=== PATIENT | male | born 1940 | race Caucasian/White ===

== ENCOUNTER 2016-07-04 16:29 | Inpatient (IN) | payer OTHER, MEDICARE ==
--- NOTE | 2016-07-04 16:42 | CPEKG ---
Heart Rate: 97 RR Interval: 619 P-R Interval: 172 QRSD Interval: 72 QT Interval: 328 QTC Interval: 417 P Butterfield: 111 QRS Butterfield: -8 T Wave Butterfield: 151 EKG Severity - NORMAL ECG - EKG Impression: SINUS RHYTHM Electronically Signed By: Melita Morris 04-Jul-2016 20:49:51
[2016-07-04] MEDS ORDERED: NS 250 ML IV ONE (16:52)
[2016-07-04 17:02] LABS: % IMMATURE GRANULYOCYTES 0.7 % (0.0-1.1); ABSOLUTE IMMATURE GRANULOCYTES 0.15 10^3/uL (0.00-0.10); ADD DIFF? NO; ADD MORPH? NO; ADD SCAN? NO; ATYPICAL LYMPHOCYTE FLAG 0 (0-99); FRAGMENT RBC FLAG 0 (0-99); HEMATOCRIT 34.7 % (40.0-51.0); HEMOGLOBIN 11.5 g/dL (13.7-17.5); LEFT SHIFT FLG 10 (0-99); LIPEMIA HEMOLYSIS FLAG 80 (0-99); MEAN CELL HEMOGLOBIN 29.3 pg (27.9-34.1); MEAN CELL HEMOGLOBIN CONCENTR. 33.1 g/dL (32.4-36.7); MEAN CELL VOLUME 88.5 fL (81.5-99.8); MEAN PLATELET VOLUME 9.6 fL (8.7-11.7); PLATELET CLUMPS FLAG 0 (0-99); PLATELET COUNT 267 10^3/uL (150-400); RED BLOOD CELL COUNT 3.92 10^6/uL (4.40-6.38); RED CELL DISTRIBUTION WIDTH 13.3 % (11.5-15.2)
--- NOTE | 2016-07-04 17:03 | EDPHY ---
H & P Time Seen by Provider: 07/04/16 16:42 HPI/ROS: HPI Transient speech problem, fever. 76-year-old male by private vehicle with and son. Patient reports he was on the cell phone at 2:00 p.m. when he had a sudden-onset expressive a aphasia. He reports feeling like he knew what he wanted to say but was unable to produce the words. This was witnessed by his as well. This is now resolved on my evaluation. He also reports that he has had an intermittent fever for the last 1 and half to 2 weeks. He has been seen by his primary care physician in [place], Dr. Harmon. He apparently had a negative chest x-ray. He was told was most likely a viral syndrome. He presents to the emergency department with fever today as well. He reports he has had an intermittent dry cough but denies this now. He denies any other associated signs or symptoms with his fever. ROS: Constitutional: As above, no chills. No weakness. Eyes: No discharge. No changes in vision. ENT: No sore throat. No nasal congestion or rhinorrhea. Respiratory: As above. No shortness of breath. Cardiac: No chest pain, no palpitations. Gastrointestinal: No abdominal pain, no vomiting, no diarrhea. Genitourinary: No hematuria. No dysuria or increased frequency with urination. Musculoskeletal: No back pain. No neck pain. No myalgias or arthralgias. Skin: No rashes. Neurological: No headache. No focal weakness or altered sensation. As above. Past medical history: Bypass and valvular surgery by Dr. Albert in April. Pacemaker. Atrial fibrillation. He is on Eliquis. Social history: Nonsmoker. Here with his and son. Physical Exam: General Appearance: Alert, no distress. This patient is responding to questions appropriately and in full sentences. This patient appears well- hydrated and well-nourished. Eyes: Pupils equal and round no pallor or injection. No lid edema, erythema or injection. Respiratory: There are no retractions, lungs are clear to auscultation with good air movement bilaterally. Sternotomy scar noted. Left upper chest wall pacemaker. These areas are clean dry and intact and without evidence of infection. Cardiovascular: Regular rate and rhythm. Holosystolic murmur. Gastrointestinal: Abdomen is soft and nontender, no masses, bowel sounds normal. No focal tenderness at McBurney's point. No Pugh sign. Neurological: Motor sensory function is grossly intact. Cranial nerves are normal. Gait is normal. No aphasia. Skin: Warm and dry, no rashes. Musculoskeletal: Neck is supple and nontender. Extremities are symmetrical. All joints range without pain or impingement. Psychiatric: No agitation. No depression. Database: EKG: EKG time is 4:39 p.m.; EKG shows a narrow complex normal sinus rhythm with a ventricular rate of 97. The DE, QRS, QT intervals are within normal limits. There are no ST-T wave changes indicative of ischemic or injury pattern. No evidence of right heart strain. Interpreted by me. Imaging: Chest x-ray PA and lateral; improved small residual right pleural effusion with mild basilar atelectasis. Left upper chest wall pacemaker. Leads appear intact. No infiltrate. No acute CHF. Interpreted by me. CT scan of head without contrast: No acute pathology. Results were discussed with staff radiologist. Echocardiogram: Procedures: Emergency department course: IV placed. He was placed on a forming acid dumper. EKG was performed. He was started on IV normal saline with a 250 cc bolus to be given initially. His vital signs have been reviewed. Heart rate is 100. He is moderately hypertensive. He is febrile at 38.2. He was given 1 g of Tylenol. He will be he will be sent for noncontrast CT scan of his head I initially. The patient does not qualify for MRI secondary to pacemaker. He consents. 6:10 p.m., patient re-evaluated. Results of diagnostic studies discussed with him and his . Negative CT results discussed. Patient is able to provide us a urine sample at this time. No source for fever on initial workup. Plan for admission discussed. He and his agree. 6:15 p.m., spoke with neurologist, Dr. James Xiao. He will consult on the patient after admission. He suggested a echocardiogram to evaluate for endocarditis as a source of fever and possible emboli. This has been ordered. 6:50 p.m., urinalysis results unremarkable. No source for fever. Possible pneumonia on chest x-ray given small right pleural effusion and associated atelectasis. Echocardiogram is pending. 6:55 p.m., discussed case with hospitalist. Dr. Tracey Lai. Case discussed in detail with her. High leukocytosis with fever is concerning. No obvious source of fever at this time. We will start treatment for possible pneumonia here in the emergency department with IV ceftriaxone, 2 g as well as 500 mg of IV azithromycin. Ceftriaxone will also provide good coverage for possible endocarditis. Dr. Lai in agreement. She accepts the patient for admission. She will follow up on results of echocardiogram. Patient admitted in stable condition to the hospitalist service. Differential Diagnosis: The differential diagnosis on this patient includes but is not limited to viral syndrome, transient ischemic attack, pneumonia, urinary tract infection, influenza, endocarditis. This represents a partial list of diagnoses considered. These considerations are based on history, physical exam, past history, reassessment and diagnostic testing. Smoking Status: Never smoked Constitutional: Initial Vital Signs Temperature (C) 38.2 C 07/04/16 16:33 Heart Rate 100 07/04/16 16:33 Respiratory Rate 20 07/04/16 16:33 Blood Pressure 160/73 H 07/04/16 16:33 O2 Sat (%) 91 L 07/04/16 16:33 O2 Delivery Mode Room Air O2 (L/minute) 2 Allergies/Adverse Reactions: Penicillins Allergy (Mild, Verified 04/29/16 14:34) Itching Home Medications: Medication Instructions Recorded Calcium Carbonate/Vitamin D3 1 tab PO DAILY 04/28/16 [Calcium 500 + Vit D Caplet] Clobetasol 0.05% [Temovate Cream] 1 martha TP BID PRN 04/28/16 Dorzolamide/Timolol [Cosopt (*)] 1 drops RTEYE BID 04/28/16 Metoprolol Succinate Xr [Toprol Xl 50 mg PO HS 04/28/16 50 mg (*)] Multivitamins [Multivitamin (*)] 1 tab PO DAILY 04/28/16 Simvastatin [Zocor] 20 mg PO HS 04/28/16 Tamsulosin HCl [Flomax 0.4 MG (*)] 0.4 mg PO HS 04/28/16 Apixaban [Eliquis] 5 mg PO BID #0 tab 05/05/16 Aspirin [Aspirin 81mg (*)] 81 mg PO DAILY #100 tab.chew 05/05/16 Furosemide [Lasix 80 MG (*)] 40 mg PO DAILY 07/04/16 Potassium Cl [Klor-Con 20 meq (*)] 20 meq PO DAILY 07/04/16 Medical Decision Making - Data Points Laboratory Results: Laboratory Results 07/04/16 16:40 07/04/16 16:40 Microbiology Results: MICROBIOLOGY 07/04/16 17:15 Blood Blood Culture - Preliminary Gram Positive Cocci Chains 07/04/16 17:15 Blood Blood Panel (PCR) - Final Streptococcus Species 07/04/16 16:40 Blood Blood Culture - Preliminary Gram Positive Cocci Chains Medications Given: Discontinued Medications Acetaminophen (Tylenol) 1,000 mg PO EDNOW ONE Stop: 07/04/16 17:08 Last Admin: 07/04/16 17:18 Dose: 1,000 mg Sodium Chloride (Ns) 250 mls @ 0 mls/hr IV ONCE ONE PRN Reason: Wide Open Stop: 07/04/16 16:53 Last Admin: 07/04/16 17:18 Dose: 250 mls Azithromycin 500 mg/ Dextrose 255 mls @ 255 mls/hr IV EDNOW ONE PRN Reason: Protocol Stop: 07/04/16 19:49 Last Admin: 07/04/16 21:11 Dose: 255 mls Ceftriaxone Sodium 2 gm/ (Dextrose) 50 mls @ 100 mls/hr IV EDNOW ONE PRN Reason: Protocol Stop: 07/04/16 19:19 Last Admin: 07/04/16 19:36 Dose: 50 mls Departure - Departure Disposition: [facility] Acute Clinical Impression: Transient aphasia, Fever, Leukocytosis, Recent open heart surgery Condition: Good
[2016-07-04] MEDS ORDERED: ACETAMINOPHEN 500 MG TAB PO ONE (17:07)
--- NOTE | 2016-07-04 17:18 | CT ---
CT Brain (Without Contrast) July 04, 2016 1707 hours History: Were finding difficulty evaluate for stroke. On Eloquis Comparison: None. Technique: Axial computed tomographic images of the brain without contrast. Dose reduction techniques were utilized. Findings: Ventricles, cisterns, and sulci are widened consistent with atrophy. No hydrocephalus, mid line shift/herniation, or epidural/subdural hematomas. No acute intraparenchymal hemorrhage or mass e ffect. Cerebrovascular atherosclerosis. Hypodensities in the white matter of bilateral cerebral hemis pheres. Bone windows demonstrate no displaced fractures. Minimal left inferior maxillary sinus thick ening. Impression: 1. Moderate atrophy. 2. No acute hemorrhage, hydrocephalus, or mass effect. 3. Cerebrovascular atherosclerosis. 4. No definite acute infarct. 5. Moderate microvascular ischemic disease. 6. Consider MRI of the brain without and with contrast enhancement, if there is continued clinical co ncern. Critical results relayed by Dr. Barakat to Dr. Morris July 04, 2016 1715 hours
[2016-07-04 17:26] LABS: APTT 48.1 SEC (23.0-38.0)
[2016-07-04 17:32] LABS: ANION GAP 12 mEq/L (8-16); CALCIUM 9.2 mg/dL (8.5-10.4); CARBON DIOXIDE 23 mEq/l (22-31); CHLORIDE 102 mEq/L (97-110); GLOMERULAR FILTRATION RATE > 60; GLUCOSE 115 mg/dL (70-100); SODIUM 137 mEq/L (134-144)
--- NOTE | 2016-07-04 17:34 | DX ---
PA and lateral chest History: Cough. Comparison: PA chest May 23, 2016, PA and lateral chest May 10, 2016. CT chest April 28, 2016. Findings: Lung volumes remain low. A small right pleural effusion is decreased since the comparison w ith apparent resolution of a left effusion. Streaky basilar opacities suggest atelectasis. There is n o pneumothorax. Borderline cardiomegaly is stable. Dual-lead left subclavian pacemaker is stable. Agus rnotomy wires and epicardial pacing leads again noted. Impression: Improved small residual right pleural effusion with mild basilar atelectasis.
[2016-07-04 17:58] LABS: PROTIME(PATIENT) 18.6 SEC (12.0-15.0)
[2016-07-04 18:12] LABS: INR 1.55 (0.83-1.16)
[2016-07-04 18:31] LABS: COLOR YELLOW; LEUKOCYTE ESTERASE,URINE NEGATIVE (NEGATIVE); NITRITE,URINE NEGATIVE (NEGATIVE)
[2016-07-04 18:36] LABS: MUCUS 1+ /lpf (NONE-1+)
[2016-07-04 18:37] LABS: BACTERIA NONE SEEN /hpf (NONE SEEN)
[2016-07-04] MEDS ORDERED: cefTRIAXone 2 GM in D5W 50 ML IV ONE (18:50)
[2016-07-04] MEDS ORDERED: AZITHROMYCIN IV 500 MG in D5W 250 ML IV ONE (18:50)
[2016-07-04] MEDS ORDERED: ACETAMINOPHEN 325 MG TAB PO PRN (22:44)
[2016-07-04] MEDS ORDERED: TEMAZEPAM 15 MG CAP PO PRN (22:44)
[2016-07-04] MEDS ORDERED: ONDANSETRON DISINTEGRATING 4 MG TAB PO PRN (22:44)
[2016-07-04] MEDS ORDERED: ONDANSETRON 4 MG/2 ML VIAL IVP PRN (22:44)
[2016-07-04] MEDS ORDERED: IOPAMIDOL (ISOVUE-370) 150 ML BTL IV ONE (22:48)
[2016-07-04] MEDS ORDERED: NON-FORMULARY NEW DRUG (Simvastatin [Zocor] 20 MG) PO SCH (23:00)
[2016-07-04] MEDS: APIXABAN 5 MG TAB PO SCH (23:42)
[2016-07-04] MEDS: ATORVASTATIN CALCIUM 10 MG TAB PO SCH (23:42)
[2016-07-04] MEDS: DORZOLAMIDE/TIMOLOL 10 ML OPHT.BTL RTEYE SCH (23:42)
--- NOTE | 2016-07-05 00:15 | GHP ---
[f rep st] HISTORY AND PHYSICAL DATE OF ADMISSION: 07/04/2016 CHIEF COMPLAINT: Fevers and difficulty with word finding. HISTORY OF PRESENT ILLNESS: The patient is a 76-year-old male with a history of atrial fibrillation and aortic stenosis who in April of 2016 underwent aortic valve replacement along with a Núñez Maze procedure, resection of the left atrial appendage, closure of patent foramen ovale, and coronary artery bypass grafting ultimately requiring implantation of a permanent pacemaker. He presented to the emergency department today with fevers and difficulty with word finding. He presents with his at his bedside whom he relies on for history as he is having a hard time putting his words together. Reportedly, this afternoon at approximately 2 p.m., he had a sudden onset of expressive aphasia. This persists during my interview late this evening, though apparently , his symptoms had briefly resolved in the emergency department. He also reports fevers of 100-101 over the last 7-10 days. Though he initially endorsed a vague headache, he denies headache, neck pain or vision changes at this time. He denies chest pain, shortness of breath, or changes in his chronic intermittent dry cough. He denies abdominal pain, nausea, vomiting, or diarrhea. He denies urinary symptoms. He had done well since his surgery until the development fevers and his new onset speech difficulty, which prompted his presentation to the emergency department. In the emergency department, a CT head was negative for acute hemorrhage or obvious infarct. Moderate microvascular ischemic disease was noted. Patient does have a history of atrial fibrillation for which he is anticoagulated on Eliquis. He is taking all his medications as prescribed. He is admitted to the hospital for further evaluation of his fevers and expressive aphasia. PAST MEDICAL HISTORY: 1. History of aortic stenosis status post aortic valve replacement. 2. Atrial fibrillation status post a Núñez Maze ablation procedure with resection of the left atrial appendage. 3. Patent foramen ovale status post closure. 4. Coronary artery disease status post coronary artery bypass grafting x1. 5. History of sinus node dysfunction with junctional escape rhythm requiring implantation of a permanent pacemaker. 6. Chronic anticoagulation. 7. Hypertension. 8. Mild to moderate mitral regurgitation. 9. Benign prostatic hypertrophy. 10. Glaucoma. PAST SURGICAL HISTORY: On April 28, 2016, patient underwent aortic valve replacement with a porcine root, Núñez Maze procedure with left atrial appendage resection, closure of patent foramen ovale, CABG x1, and implantation of a permanent pacemaker. MEDICATIONS: Please see [facility] for complete updated outpatient medication list. ALLERGIES: Penicillin. FAMILY HISTORY: Positive for stroke and hypertension. SOCIAL HISTORY: The patient lives with his who is present at the bedside. He is a lifetime nonsmoker and denies drugs or alcohol. REVIEW OF SYSTEMS: A 10-point review of systems was performed and was negative except as per HPI. OBJECTIVE: VITAL SIGNS: On arrival to the emergency department, temperature is 38.2, blood pressure 160/73, heart rate 100, respiratory rate 20. He is 91% on room air. GENERAL: The patient is awake, alert, oriented, in no acute distress. HEENT: Head is atraumatic, normocephalic. Pupils are equal, round, and reactive to light. Extraocular muscles are intact. Oropharynx is clear. Mucous membranes are moist. NECK: Supple. There is no nuchal rigidity. No JVD. HEART: Regular rate and rhythm. There is a 2/6 systolic ejection murmur. LUNGS: Clear to auscultation bilaterally. ABDOMEN: Soft, nondistended, nontender. Normoactive bowel sounds. EXTREMITIES: Without cyanosis, clubbing, or edema. NEUROLOGIC: Patient continues to demonstrate expressive aphasia. He otherwise moves all 4 extremities. There is no facial droop. Pronator drift is negative. LABORATORY DATA: CBC reveals white blood cell count of 20,000 with 89% neutrophils. INR is elevated to 1.5. Lactic acid is normal at 1.1. Basic metabolic panel reveals normal electrolytes, normal creatinine of 1.0, blood sugar of 115. Urinalysis is unremarkable. Influenza swab is negative. LFTs are pending. CT head is negative for acute hemorrhage, hydrocephalus, or mass effect. Moderate atrophy is noted as well as cerebrovascular atherosclerosis and moderate microvascular ischemic disease. There is no definite acute infarct. Chest x-ray reveals improvement of a prior small residual right pleural effusion and streaky basilar opacities suggestive of atelectasis. EKG shows normal sinus rhythm with Q-waves in leads III and aVR. Otherwise, no evidence of acute ischemic changes. ASSESSMENT AND PLAN: The patient is a 76-year-old male who underwent open heart surgery for valve replacement, coronary artery bypass grafting, and Núñez Maze procedure in April 2016 at which time he required implantation of a permanent pacemaker. He now presents to the emergency department with 7-10 days of fevers and new onset expressive aphasia. 1. Fever. His temperature on arrival is 100.8. This is in the setting of leukocytosis with a left shift, though he does not demonstrate septic physiology and has a normal lactate. There is no obvious pneumonia on his chest x-ray and clinically, there does not appear to be a respiratory source. His urine is negative. His abdomen is nontender, making an intraabdominal source unlikely. Given his recent heart surgery along with heart murmur and new neurologic symptoms, I have some concern for endocarditis. An echocardiogram is ordered, though given his hemodynamic stability, it will be performed in the morning. The patient received 2 g of IV ceftriaxone plus azithromycin in the emergency department. I am going to continue the ceftriaxone while we await blood cultures and an echocardiogram. Should he rule in for endocarditis, Infectious Disease consult will be obtained. 2. Expressive aphasia. Given the intermittent nature of his symptoms, these could be transient ischemic attacks. He is already anticoagulated and on antiplatelet therapy. He is unable to undergo MRI due to the presence of his pacemaker. I am going to obtain a stat CT angiogram of his head and neck. Neurology has been consulted. We will continue him on his aspirin, Eliquis, and statin. As above, endocarditis is considered a potential etiology of embolic transient ischemic attacks. Will await blood cultures and echo results. 3. Coronary artery disease, status post coronary artery bypass grafting x1. The patient is chest pain-free. He will be continued on his aspirin, beta stephane, and statin. 4. Atrial fibrillation status post Núñez Maze procedure and left atrial appendage ligation. He has a [id number] score of 3. He is in normal sinus rhythm and rate controlled on metoprolol. Will continue his Eliquis and beta stephane. 5. Hypertension. His blood pressure is fairly well controlled at this time. I will continue his outpatient antihypertensives. During the night, should he develop any hypotension or hemodynamic instability, we will proceed with a stat echocardiogram. 6. Deep venous thrombosis prophylaxis. Patient is anticoagulated. 7. Code status: Patient is full code. 8. Disposition: Patient admitted to inpatient status as he will likely require greater than 48 hours hospitalization for ongoing workup and management of his fevers and expressive aphasia. /[id number]/MODL MTDD
[2016-07-05 00:21] LABS: ALBUMIN 2.7 g/dL (3.5-5.0); BILIRUBIN,TOTAL 0.8 mg/dL (0.1-1.4); BILIRUBIN-CONJUGATED 0.3 mg/dL (0.0-0.5); BILIRUBIN-UNCONJUGATED 0.5 mg/dL (0.0-1.1); TOTAL PROTEIN 5.8 g/dL (6.3-8.2)
[2016-07-05 05:37] LABS: % IMMATURE GRANULYOCYTES 0.6 % (0.0-1.1); ADD DIFF? NO; ADD MORPH? NO; ADD SCAN? NO; ATYPICAL LYMPHOCYTE FLAG 0 (0-99); FRAGMENT RBC FLAG 0 (0-99); HEMATOCRIT 31.2 % (40.0-51.0); HEMOGLOBIN 10.2 g/dL (13.7-17.5); LEFT SHIFT FLG 40 (0-99); LIPEMIA HEMOLYSIS FLAG 80 (0-99); MEAN CELL HEMOGLOBIN 29.2 pg (27.9-34.1); MEAN CELL HEMOGLOBIN CONCENTR. 32.7 g/dL (32.4-36.7); MEAN CELL VOLUME 89.4 fL (81.5-99.8); MEAN PLATELET VOLUME 9.7 fL (8.7-11.7); PLATELET CLUMPS FLAG 0 (0-99); PLATELET COUNT 238 10^3/uL (150-400); RED BLOOD CELL COUNT 3.49 10^6/uL (4.40-6.38); RED CELL DISTRIBUTION WIDTH 13.4 % (11.5-15.2)
--- NOTE | 2016-07-05 06:55 | CT ---
CT Angiography of the Head Clinical Indications: Expressive aphasia. Technique: During automated power injection of 85 mL of Isovue-370, thinly collimated spiral (volumetric) multidetector helical imaging was performed through the head. Independent three-dimensional computer workstation was used for additional manipulations of images by the radiologist. Dose reduction techniques were utilized. Findings: The [place] and its branches are normal. No evidence of aneurysm or vascular malformation. No occlusions are found. Normal variant anatomy of vertebrobasilar artery is noted. The left posterior cerebral artery has a origin from the left internal carotid. The P1 segment of the left posterior cerebral artery is hypoplastic. The right posterior communicating artery is small. The anterior communicating artery is small. The right anterior cerebral artery is large, while the left is somewhat small. Impression: Normal. MTDD
--- NOTE | 2016-07-05 06:56 | CT ---
CT Angiography of the Neck (With Contrast) Clinical Indications: Expressive aphasia. Technique: During IV administration of 85 mL of Isovue-370 intravenously, helical multidetector data acquisition was obtained from the upper thorax cephalad through the skull base. The thinly collimated data were manipulated in multiple projections on the 3D computer workstation by the radiologist. Dose reduction techniques were utilized. Findings: Carotid bifurcations are widely patent. Both vertebral arteries are open. No evidence of occlusion, hemodynamically significant stenosis or ulceration. The left vertebral artery is developmentally small, while the right is normal in size. Impression: Normal. Note: All stenoses are calculated using NASCET Criteria. MTDD
[2016-07-05] MEDS ORDERED: cefTRIAXone 2 GM in D5W 50 ML IV SCH (09:00)
[2016-07-05] MEDS ORDERED: FUROSEMIDE 80 MG TAB PO SCH (09:00)
[2016-07-05] MEDS: VANCOMYCIN HCL/NORMAL SALINE 250 ML IV SCH ×2 (09:48→19:53)
[2016-07-05] MEDS: POTASSIUM CL 20 MEQ TAB PO SCH (09:53)
[2016-07-05] MEDS: FUROSEMIDE 40 MG TAB PO SCH (09:53)
[2016-07-05] MEDS: DORZOLAMIDE/TIMOLOL 10 ML OPHT.BTL RTEYE SCH ×2 (09:54→21:51)
--- NOTE | 2016-07-05 10:01 | GCON ---
[f rep st] CONSULTATION NEUROLOGIC CONSULTATION REFERRING PHYSICIAN: Tracey Lai MD HISTORY: The patient is a 76-year-old gentleman whom I am asked to see in neurologic consultation re garding fever and some expressive language difficulties. The patient says that he started having yadira e intermittent fevers over the last 5 or 6 days. He saw his primary care provider and had some evalu ation but nothing specifically was identified. He says he was at home and documented fevers as high as 102. Yesterday, he started having trouble with verbal expression around 2:00 p.m. He suddenly co uld not form normal sentences or words. He seemed to know what he wanted to say but could not speak. There was some fragmentary speech, such as the ability to echo what his was telling him about maybe needing to go to the hospital. He came to the emergency department and was evaluated, but it w as felt that the language problem had mostly resolved. However, the family says that his language van s still not returned back to normal, and Dr. Lai documented the same yesterday when she saw him f or her history and physical. This morning, they continued to say that everything is a bit better, bu t he still does not have his normal return of speech. He sometimes has some trouble finding words an d is a little slower in his reading and comprehension. He has never had a history of TIA or stroke. He had a temperature documented here at a maximum of 38.2 around 4:30 yesterday and has been afebril e since then. He denies focal numbness or weakness. He says he does not have a significant headache but some mild aching in the head. He has not had any change in bowel or bladder function. He denie s shortness of breath or chest pain or palpitations. There have not been clear-cut exacerbating or a lleviating factors for the symptoms. REVIEW OF SYSTEMS: A 10-point review of systems is completed and unremarkable except for that noted above. PAST MEDICAL HISTORY: Notable for several years of known valvular disease that has been monitor and eventually reached the point of needing aortic valve replacement a few months ago. He also has histo ry of intermittent atrial fibrillation that became more persistent last February, and he has subsequ ently had a Núñez Maze ablation procedure after failing some attempts at cardioversion. He had resecti on of the left atrial appendage. He had a closure of patent foramina ovale as well, and coronary byp ass x1. He had sinus node dysfunction with junctional escape rhythm postoperatively and needed perma nent pacemaker placement. He remains on anticoagulation with Eliquis and aspirin. There is a histor y of hypertension. He has mild to moderate mitral regurgitation but not in need of surgery when it w as inspected at that time. Glaucoma, BPH. He had porcine root replacement in addition to the valve. ALLERGIES: Penicillin. FAMILY HISTORY: Notable for stroke and hypertension. He lives with his . He has no history of smoking or drug use or alcohol. PHYSICAL EXAMINATION: VITAL SIGNS: Currently, blood pressure is 123/55, pulse of 70, respirations 1 6, temperature 36.4, T-max of 38.2 yesterday at 4:30. GENERAL: He is well developed, in no acute di stress. EYES: Clear. NECK: Supple with no bruits or masses, although there is some radiation of a cardiac murmur heard at the carotid arteries. CARDIOVASCULAR: There is a systolic murmur about 2 to 3/5. SKIN: I see no skin lesions or rashes or specific embolic phenomena evident. There is 1 area of discoloration below a nail bed that looks more like a little bruise. NEUROLOGIC: He is oriented to person, place, time, and general situation. He has good recent and remote memory. Concentration and attention are preserved. General fund of knowledge is preserved. He does have a little bit of trouble with his verbal expression. Sometimes he made minor errors when he was reading sentences. Laura woo is a little slower than his baseline, according to his , when he is trying to express himself. Pupils 2 mm and reactive. I cannot see the fundi to make any comment. Visual bay are full. Ext raocular movements are intact. Normal facial sensation and strength. Palate elevates symmetrically. Tongue protrudes midline. Hearing is preserved. No weakness of head turning or shoulder shrug. M otor exam reveals normal muscle bulk and tone with 5/5 strength and no abnormal movements. Sensation is preserved for temperature and light touch in the upper and lower extremities. Reflexes are 1+. No pathologic reflexes. No ataxia in the upper extremities. I did not have him try to walk. When laura woo came to the hospital, his admission white count was 20,000 with 89% neutrophils, now 15,000. INR o f 1.5. Chemistry showing normal electrolytes. Urinalysis unremarkable. Negative testing for flu. At this point, blood culture showing probable streptococcus species with gram-positive cocci in chain s. CT angiogram of the head and neck showed no stenosis. Echocardiogram is currently being performe d with results pending. I have reviewed his head CT. This shows no hemorrhage or evidence of acute stroke. There are some changes of microvascular ischemic change, moderate atrophy. IMPRESSION: 1. 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 2. Atrial fibrillation currently on anticoagulation. 3. Coronary disease, status post bypass with aspirin therapy for prevention of ischemia. 4. Hypertension. I had a detailed discussion with the patient and his regarding his current condition. I explain ed the suspicion for endocarditis with positive blood cultures and recent valve replacement. We talk ed about the fact that this condition can be associated with intracerebral hemorrhages and there is a risk benefit analysis to consider. Typically, we would not anticoagulate someone with purely isolat ed endocarditis and embolic phenomena, but he has other risk factors that include his atrial fibrilla tion. Therefore, there is no formal recommendation from the [place] [employer] or Stroke Ass ociation regarding whether to anticoagulate or not. It is felt that individuals with significant ris k for anticoagulation can continue on anticoagulation with monitoring of imaging and clinical status closely. I explained to them that a hemorrhagic conversion is possible if he is embolizing, but he i s now on appropriate therapy with antibiotics. I think we will perform intermittent CT scans, includ ing a repeat today to make sure we do not see any evidence of hemorrhage. If he were to start showin g evidence of hemorrhage, then we would potentially whole anticoagulation temporarily. Consultation should be obtained with Cardiology as well as Infectious Disease and Dr. Sandy, his cardiothoracic mcnair rgeon. I will continue to monitor his progress. His current NIH stroke scale is 1. Copy requested to: Dr. Sandy Cardiothroacic surgery Dr. Quiroz Cardiology Dr. Eden Arndt /[id number]/MODL
--- NOTE | 2016-07-05 10:07 | ECHO ---
[id number] + + [address] : : [place] [address] : : [phone] + Adult Echocardiographic Report + --------+ :Name: SINDY DUVALL MStudy Date: 07/05/2016 09:04 AM : : Hospital Admission Number: [id number] Locat ion: 362: :: 1940 Gender: Male Height: 72 in : :Age: 76 yrs Race: WH Weight: 188 l b : :Reason For Study: positive cultures, r/o vegetation : : BSA: 2.1 mete rs2 : :History: TIA, AVR : + --------+ MMode/2D Measurements & Calculations IVSd: 0.94 cm RVDd: 3.3 cm FS: 42.3 % MV Diam: 3.1 cm LVPWd: 0.90 cm LVIDd: 3.6 cm EDV(Teich): 53.6 ml LVIDs: 2.1 cm ESV(Teich): 13.8 ml EF(Teich): 74.3 % Ao root diam: LVOT diam: LVLd ap4: 9.4 cm SV(MOD-sp4): 3.4 cm 2.3 cm EDV(MOD-sp4): 118.0 ml LA dimension: LVOT area: 172.0 ml 4.9 cm 4.0 cm2 LVLs ap4: 8.0 cm ESV(MOD-sp4): 54.0 ml EF(MOD-sp4): 68.6 % Normal Measurement Values: + + :LVIDd (3.5-5.7cm) IVSd (0.6-1.1cm) LVPWd (0.6-1.1cm) Aortic Root (2.0-3.7cm)Left Atrium (1.5-4.0cm): :LV Vol(d) (76-115ml) LV Vol(s) (29-48ml) Ejec Fraction (50-65%)PV Papito (0.6- 1.2m/s) TV Papito (0.4-1.0m/s) : :MV E Papito (0.8-1.0m/s)MV A Papito (0.3-1.0m/s)LVOT Papito (0.7-1.2m/s) Asc Ao Papito ( 0.9-1.8m/s) : + + Doppler Measurements & Calculations MV E max papito: MV V2 mean: Ao V2 max: LV V1 max: 137.0 cm/sec 32.3 cm/sec 202.2 cm/sec 126.7 cm/sec MV A max papito: MV mean PG: Ao max PG: LV V1 max P.7 cm/sec 0.55 mmHg 16.4 mmHg 6.4 mmHg MV E/A: 4.2 MV V2 VTI: 13.1 cm Ao mean PG: LV V1 mean PG: MV dec time: MV area (1 diam): 12.4 mmHg 3.6 mmHg 0.16 sec 7.7 cm2 Ao V2 mean: LV V1 mean: 163.8 cm/sec 89.5 cm/sec MVA(VTI): 7.7 cm2 Ao V2 VTI: 46.3 cm LV V1 VTI: MV Flow area(1diam):MELISSA(I,D): 2.2 cm2 25.2 cm 7.7 cm2 MELISSA(V,D): 2.5 cm2 MR max papito: MR(RF 1 diam): SV(MV 1 diam): PA V2 max: 495.2 cm/sec 40.4 % 101.4 ml 131.7 cm/sec MR max PG: SI(MV 1 diam): PA max P.1 mmHg 48.8 ml/m2 6.9 mmHg SV(LVOT): 101.2 ml TR max papito: RF(MV,Ao)(1 diam): - 355.6 cm/sec 3.2 TR max PG: RF(MV,LVOT)(1diam): 50.6 mmHg 0.00 RAP systole: 15.0 mmHg RVSP(TR): 65.6 mmHg Left Ventricle The left ventricle is normal in size and function. There is normal left ventricular wall thickness. Ejection Fraction = 65-70%. No regional wall motion abnormalities noted. Flattened septum is consistent with RV pressure/volume overload. Right Ventricle The right ventricle is normal in size and function. There is a pacemaker lead in the right ventricle. Atria The Left Atrial Volume is 37 ml/m2. The left atrium is mildly dilated. The right atrium is mildly dilated. A dilated inferior vena cava suggests increased right atrial pressure. The lack of respiratory variation in the inferior vena cava diameter is noted. There is a catheter/pacemaker lead seen in the right atrium. Mitral Valve The mitral valve leaflets appear thickened, but open well. There is no vegetation seen on the mitral valve. There is no mitral valve stenosis. There is moderate mitral regurgitation. Tricuspid Valve The tricuspid valve is normal in structure and function. There is no tricuspid stenosis. There is moderate tricuspid regurgitation. Right ventricular systolic pressure is 66mmHg. There is Doppler evidence for moderate to severe pulmonary hypertension. Aortic Valve Probable vegetation noted on the AVR leaflets. Mean gradient across the AVR 13mmHg which is within normal range for this type and size valve. There is no aortic insufficiency. There is a #25mm Bioprosthetic Aortic valve. Pulmonic Valve The pulmonic valve is not well visualized. Great Vessels The aortic root is normal size. Pericardium/Pleural Small pericardial effusion. Conclusion A two-dimensional transthoracic echocardiogram with M-mode and Doppler was performed. A transesophageal echocardiogram is recommended. The left ventricle is normal in size and function. Ejection Fraction = 65-70%. Flattened septum is consistent with RV pressure/volume overload. The Left Atrial Volume is 37 ml/m2. The left atrium is mildly dilated. The right atrium is mildly dilated. A dilated inferior vena cava suggests increased right atrial pressure. The lack of respiratory variation in the inferior vena cava diameter is noted. There is moderate mitral regurgitation. There is moderate tricuspid regurgitation. Right ventricular systolic pressure is 66mmHg. There is Doppler evidence for moderate to severe pulmonary hypertension. There is a #25mm Bioprosthetic Aortic valve. Probable vegetation noted on the AVR leaflets. Mean gradient across the AVR 13mmHg which is within normal range for this type and size valve. Small pericardial effusion. Final Reading Physician: Shantal Sun signed on 07/05/2016 10:06 AM Ordering Physician: Melita Morris Performed By: Dariana Mack
--- NOTE | 2016-07-05 11:57 | GCON ---
[f rep st] CONSULTATION CARDIOLOGY CONSULTATION DATE OF CONSULTATION: 07/05/2016 CHIEF COMPLAINT: Fevers with probable TIA versus CVA, concern over endocarditis. HISTORY OF PRESENT ILLNESS: This is a very pleasant 76-year-old gentleman who, in April 2016, had aortic stenosis with bioprosthetic aortic valve replacement with a Núñez Maze procedure with left atri al appendage closure, closure of a patent foramen ovale, and 1 single-vessel coronary bypass grafting . In recovery, he had a permanent pacemaker placed due to sick sinus syndrome. He was doing well un til 4 or 5 days ago when he started having some intermittent fevers of unknown source. He denies any dysuria, coughs, colds, pacer site irritation or any peripheral wounds. He then had problems with w ord finding. He was brought to the emergency room and admitted. His white count was elevated. Ther e was no evidence of acute hemorrhage. He was seen by Dr. Xiao who suspects possible septic emb ramez. An echocardiogram done today was suggestive of a lesion on the aortic valve, although I could n ot see perivalvular leak, and there was no aortic insufficiency. Otherwise, he had normal left eject ion fraction and otherwise mild valvular heart disease. His mitral valve did not appear to have any significant abnormalities. I saw the patient in his room with his . He is comfortable, feeling well at this time. He does have positive blood cultures. I have recommended a BRENDA, which he had in January prior to his surgery. I outlined the procedure, risks, benefits, complications, and alternati ve, and he understands, accepts, and wishes to proceed. I think it is important for a conclusive robert gnosis as well as to look at other valves. He did have a CTA of his head and neck, which apparently was normal. PAST MEDICAL HISTORY: Includes his cardiac history as noted above. He has a history of hypertension , history of BPH and glaucoma. MEDICATIONS: See outpatient list for complete update. He is on Eliquis. ALLERGIES: Penicillin. FAMILY HISTORY: Hypertension. SOCIAL HISTORY: He is a nonsmoker. Denies alcohol abuse. He lives with his and apparently is fully active without issues. REVIEW OF SYSTEMS: Included in the HPI. There is no GI/ blood loss. No ongoing fevers, syncope, CHF signs or symptoms. LABS: His white count was 20,000 with a left shift. He had a normal creatinine and electrolytes. PHYSICAL EXAMINATION: VITAL SIGNS: Blood pressure is 113/72, his pulse is sinus and regular. GENER AL: Elderly male, in no acute distress. HEENT: Mouth/oropharynx were moist. BACK/CV/CHEST WALL: Without palpable tenderness. Pacer site appeared nontender and well healed. CARDIOVASCULAR: Regula r rate and rhythm with a soft systolic murmur. I could not hear gallops or rubs. ABDOMEN: Soft, no ntender. Normoactive bowel sounds. MUSCULOSKELETAL: Without cyanosis, clubbing or edema. NEUROLOG IC: Alert and oriented x3, moving all extremities. ASSESSMENT: 1. 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 He has had a prodrome of fevers w ith probable embolic event. Transthoracic echocardiogram suggested a vegetation. I would like to fo llow up with a transesophageal echocardiogram for better definition. I do not see perivalvular leaks or significant aortic insufficiency. Overall, his heart function was normal. He had no pericardial effusions. There is no obvious site of infection. The patient is on antibiotics. 2. Neurologic event. Patient appears to be resting comfortably without ongoing issues. This will b e followed by Dr. Xiao on the hospital service to decide on further outpatient therapy. The pat ient will remain on Eliquis, no active bleeding. Patient is in normal sinus rhythm at this time. He did have a Núñez Maze procedure as well with left atrial ligation. PLAN: BRENDA and continued observation in the hospital for neurologic issues. Hopefully, he can be dis charged on appropriate antibiotics. Dr. Sandy will be made aware of his admission as well, according to the patient. /[id number]/MODL
[2016-07-05] MEDS ORDERED: PROPOFOL 200 MG/20 ML VIAL ONE (12:27)
[2016-07-05] MEDS: APIXABAN 5 MG TAB PO SCH (13:08)
[2016-07-05] MEDS: ASPIRIN 81 MG CHEWABLE TAB PO SCH (13:08)
--- NOTE | 2016-07-05 13:12 | PDCARTEE ---
CAR BRENDA CAR BRENDA: BRENDA..done without complications...consents signed..time out done anesthesia per 1. findings(prelim)......normal lvef ...bioprosthetic valve with normal function (no perivalular leak) and no evidence of vegetations on aortic,mitral or tricuspid valve...mild/mod mr and mild tr..oversewn roxanne ..no effusion.....full report to follow on echo dictation
--- NOTE | 2016-07-05 13:30 | ECHO ---
[id number] + + [address] : : [facility] [address] : : [phone] + Transesophageal Echocardiographic Report + --------+ :Name: SINDY DUVALL MStudy Date: 07/05/2016 11:43 AM : : Hospital Admission Number: [id number] Locat ion: CVC: :: 1940 Gender: Male : :Age: 76 yrs Race: WH : :Reason For Study: Eval for Endocarditis : :History: AVR : + --------+ Left Ventricle The left ventricular ejection fraction is normal. Atria The interatrial septum is intact with no evidence for an atrial septal defect. Mitral Valve The mitral valve is normal in structure and function. There is no evidence of mitral valve prolapse. There is no mitral valve stenosis. There is mild to moderate mitral regurgitation. Tricuspid Valve There is moderate tricuspid regurgitation. Aortic Valve The aortic valve is trileaflet. There is no aortic valvular vegetation. no perivalvular leaks. There is no aortic stenosis. There is no aortic insufficiency. There is a bioprosthetic aortic valve. Pulmonic Valve The pulmonic valve is normal in structure and function. Conclusion A 2D transesophageal echocardiogram with color flow Doppler was performed. There is no evidence of a mass or vegetation. This does not rule out endocarditis. The left ventricular ejection fraction is normal. The mitral valve is normal in structure and function. There is moderate tricuspid regurgitation. The aortic valve is trileaflet. There is no aortic valvular vegetation. There is no evidence of a mass or vegetation. This does not rule out endocarditis. no perivalvular leaks There is a bioprosthetic aortic valve. Final Reading Physician: Shantal Sun signed on 07/05/2016 01:28 PM Ordering Physician: Tracey Lai Performed By: Xavier Paniagua MD
--- NOTE | 2016-07-05 15:50 | CT ---
CT head without contrast. Clinical indication: Aphasia and bacterial endocarditis. Comparison: July 04, [address], CT angiogram July 04, 2016 at 2307 hours. Technique 1.5 mm contiguous helical axial scanning through the brain without contrast. Routine recons tructions in the coronal and sagittal planes. Dose reduction technique was performed. FINDINGS: There is an infarct in the left parietal region. It is small. It is seen in retrospect on t he 2 prior examinations, but has gotten slightly larger and is more conspicuous on today's examinatio n. There is no evidence of edema, midline shift, or hemorrhage. The bones exhibit minimal inferior ma xillary sinus disease. Mastoids are clear. Impression: Evolving small left frontoparietal stroke. It was seen in retrospect, however, would be very difficult to call on the previous examinations. I have reviewed this with Dr. Curt Isabel, who agrees with the above finding and critical results were relayed by Dr. Vlad Barakat to Dr James Xiao, on July 05, 2016 at 1420 hours.
--- NOTE | 2016-07-05 15:53 | CT ---
CT chest without and with contrast. Clinical indication: Bacterial endocarditis, evaluate the median sternotomy and the valve and ascendi ng aorta. TECHNIQUE: 1.25 mm contiguous helical axial scanning through the chest without contrast followed by 1 .25 mm contiguous helical axial scanning through the chest after the uneventful administration of 85 mL of Isovue-300.Routine reconstructions were performed in coronal and sagittal planes. Dose reductio n technique was performed. FINDINGS: The median sternotomy is healing. Median sternotomy wires are intact. There is a small amou nt of postsurgical change around the ascending aorta and the prosthetic pig valve. Dual lead pacer an d epicardial pacers are noted. The epicardial pacer wires terminate off the edge of this examination. Small hiatal hernia is noted. There is a small pleural effusion on the right with a small amount of basilar atelectatic change. No suspicious pulmonary nodules. Calcified granuloma noted at the right apex. Limited examination of the upper abdomen is unremarkable. IMPRESSION: 1. Postsurgical changes around the prosthetic pig valve and aortic root. 2. Median sternotomy is healing nicely. The case was discussed by Dr. Barakat in person with Dr. Sandy today 1436 hours.
--- NOTE | 2016-07-05 16:05 | HOSPPROG ---
Hospitalist Progress Note Assessment/Plan: # Presumed acute bacterial endocarditis- transthoracic echocardiogram( reviewed) suggestive of vegetation transesophageal echocardiogram- discussed with Dr. 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 Sandy- he feels strongly that the patient's risk of stroke with atrial fibrillation is markedly decreased as he removed the atrial appendage intraoperatively dramatically decreasing his risk of embolic stroke with AFib - coordinating care with Neurology - serial CT scans # high-grade Gram-positive bacteremia- currently on IV vancomycin and ceftriaxone- microbiology working with PCR identification # recent porcine aortic valve replacement- no insufficiency regurgitation visualized on transthoracic or esophageal echo today - CT surgery and Cardiology following # transient white complex dysrhythmia- seen today and echocardiography lab - pacer interrogation ordered # atrial fibrillation- status post atrial appendage removal and Maze procedure - oxygen saturations 90% on room air - will need consensus regarding the management of the patient's device in the setting of Gram-positive bacteremia - holding Eliquis per Dr. galindo hands request again will need consensus with the team # acute leukocytosis- WBC 20->15- presumed secondary to bacteremia - chest CT in urinalysis negative at presentation - continue above management # prophylaxis- Lovenox # diet cardiac # disposition greater than 2 midnights as the patient is presenting with severe bacteremia and endocarditis I have discussed the case with CT surgery Cardiology Infectious Disease and Neurology- we will need to build consensus around some of the care decisions Subjective: denies chest pain Objective: Vital Signs Temp Pulse Resp BP Pulse Ox 37.1 C 80 16 113/50 L 90 L 07/05/16 15:56 07/05/16 15:56 07/05/16 15:56 07/05/16 15:56 07/05/16 15:56 Laboratory Results 07/05/16 05:21 07/04/16 07/05/16 07/06/16 05:59 05:59 05:59 Intake Total 1640 Balance 1640 PT 18.6 SEC (12.0-15.0) H 07/04/16 16:40 INR 1.55 (0.83-1.16) H 07/04/16 16:40 - Physical Exam Constitutional: no apparent distress Eyes: anicteric sclera Ears, Nose, Mouth, Throat: moist mucous membranes Cardiovascular: regular rate and rhythym, no murmur, rub, or gallop Respiratory: no respiratory distress Gastrointestinal: normoactive bowel sounds, soft, non-tender abdomen Genitourinary: no bladder fullness Skin: warm, normal color Musculoskeletal: No asymmetric calves Neurologic: AAOx3 Psychiatric: interacting appropriately, not anxious Lymph, Heme, Immunologic: no cervical LAD ICD10 Worksheet Patient Problems: Problems Problem Status Diagnosed Fever Acute Leukocytosis Acute Acute blood loss anemia Acute S/P CABG x 1 Acute 04/29/16 S/P ablation of atrial fibrillation Acute 04/29/16 S/P aortic valve replacement with stentless valve Acute 04/29/16 S/P ascending aortic replacement Acute 04/29/16 Status post patent foramen ovale closure Acute 04/29/16 Aortic stenosis due to bicuspid aortic valve Chronic Ascending aortic aneurysm Chronic Chronic anticoagulation Chronic PFO (patent foramen ovale) Chronic Persistent atrial fibrillation Chronic
[2016-07-05] MEDS: ENOXAPARIN 40 MG/0.4 ML SYR SC SCH (17:21)
--- NOTE | 2016-07-05 17:48 | GCON ---
[f rep st] CONSULTATION DATE OF CONSULTATION: 07/04/2016 The patient is seen at the request of Dr. Paniagua with the patient's permission. 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 He subsequently did well postoperatively. He was discharged from my service. He did have a permanent pacemaker placed postoperatively, which at this present time, is functioning without complications according to the chart. He presented with an aphasic stroke and a history of recent fevers. He was found to have a small parietal infarct on CT today with contrast, and on review of the transesophageal echo although was reviewed as normal by Cardiology, I think that the leaflets appeared to be somewhat thickened, although this could be artifact. RECOMMENDATIONS: I would treat this patient aggressively with appropriate antibiotics and follow with serial echoes. This particular type of prosthetic valve conduit is not stented and therefore, we may be able to cure him with antibiotics if it is isolated to the leaflets. Obviously, should he have recurrent embolization, persistent bacteremia, new onset of atrial regurgitation or congestive heart failure, we would have to seriously consider reoperation, replacing his aortic root. The patient and his family were advised of the same. I will follow with you in house. His initial surgery was on April 28. I did review his CTA of his chest, and that reveals no obvious source for infection. There is residual thrombus around the aortic root which I would expect this early postoperatively At the present time, I do not believe it represents an infection. I would discontinue anticoagulation, which was prescribed as protocol post Maze procedure for AF. His KAYLA has been removed and the risk outweighs the benefit of anticoagulation for endocarditis . Dr Sánchez was informed of my recommendations. /[id number]/MODL MTDD
[2016-07-05] MEDS: ATORVASTATIN CALCIUM 10 MG TAB PO SCH (19:52)
[2016-07-05] MEDS: TAMSULOSIN HCL 0.4 MG CAP PO SCH (19:52)
--- NOTE | 2016-07-05 19:55 | GCON ---
[f rep st] CONSULTATION INFECTIOUS DISEASE CONSULTATION DATE OF CONSULTATION: 07/05/2016 REASON FOR CONSULTATION: Evaluation for endocarditis. HPI: A 76-year-old male, who underwent aortic root replacement with freestyle bioprosthetic valve with coronary bypass grafting and closure of patent foramen ovale, as well as a Núñez-Maze IV procedure with resection of left atrial appendage for atrial fibrillation in April of 2016. His postoperative course was fairly unremarkable and he was discharged approximately 1 week after surgery. Problems developed approximately 6 days prior to admission when patient developed a fever and a minimal cough. He was initially evaluated by his primary care doctor, who obtained a chest x-ray which was within normal limits. Subsequently, patient developed word-finding difficulty and presented for further evaluation. In the emergency room, the patient was confirmed to have expressive aphasia with first CT seemingly unremarkable along with a CTA head and neck that were also negative. Nonetheless, a CT head today shows a left parietal CVA. Further, patient had a chest CT which was negative for focal pulmonary abnormalities. Patient also underwent a BRENDA, which preliminarily today shows normal EF, a functioning bioprosthetic valve without leak, and no clear evidence for vegetations on the aortic, mitral, or tricuspid valves. He does have mild to moderate MR and mild tricuspid regurgitation, and noted oversewn left atrial appendage. To review patient's current clinical status, patient has had fever for 5 days with lack of appetite. No diarrhea. No melena. No bright red blood per rectum. Denies difficulty with his teeth. No recent dental procedures. His last dental procedure was prior to his operation. He also denies urinary problems. He has had weight loss since his surgery going from approximately 212 pounds down to 189. PAST MEDICAL HISTORY: Aortic stenosis status post aortic valve replacement as per HPI, atrial fibrillation status post Núñez-Maze ablation procedure with resection of the atrial appendage, patent foramen ovale status post closure, coronary artery disease status post grafting x1, history of sinus node dysfunction and junctional escape status post pacemaker placement during last hospitalization in April 2016, chronic anticoagulation, hypertension, mild to moderate mitral regurgitation, BPH, glaucoma. SURGICAL HISTORY: As per HPI. MEDICATIONS: Tylenol, aspirin, Lipitor, Cosopt, Lovenox, Toprol 50 mg daily, Zofran 4 mg q.4 hours p.r.n., Flomax, Restoril, vancomycin 1 g IV q.12 started 07/05/2016 at 9 a.m., ceftriaxone 2 doses 07/04/2016 and 07/05/2016. Also, got 1 dose of azithromycin in the emergency room. ALLERGIES: Penicillin. On future visits, will review specific reaction. FAMILY HISTORY: Positive for stroke and CVA. SOCIAL HISTORY: Patient is . His is at bedside. Lifetime nonsmoker. No alcohol or drugs. 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 They have 2 adult children. REVIEW OF SYSTEMS: A complete 10-point review of systems was performed and is negative, except as mentioned in HPI. PHYSICAL EXAM: VITAL SIGNS: T-max 38.2, T-current 37, blood pressure 119/59, heart rate 77, respiratory rate 16, saturation 92% on room air. GENERAL: This is a pleasant elderly male, sitting up in bed, in no acute distress. HEENT: He had no conjunctival hemorrhages. Extraocular muscles are intact. Oropharynx : Good dentition. Moist mucous membranes. No oral ulcerations or exudates. Gums were healthy-appearing. NECK: Supple. No lymphadenopathy. No tenderness to palpation. CARDIOVASCULAR: Regular rate and rhythm. Possible faint diastolic murmur, but difficult, very low grade. CHEST: He had some crackles in the right base, otherwise clear. ABDOMEN: Soft, nontender. Bowel sounds are present. No hepatosplenomegaly. EXTREMITIES: He had no joint swelling. No splinter hemorrhages. No Janeway lesions. No Osler's nodes. NEUROLOGICALLY: Patient had intact motor, but notable for expressive aphasia. No cranial nerve abnormalities were detected. LABORATORY: White count on admission 20,000 today 15,000, 89% neutrophils, 4% lymphocytes, hematocrit 31, platelets of 238. Creatinine 1.0. AST 28, ALT 33. IMAGING: As per HPI. ASSESSMENT AND PLAN: This is a 76-year-old male who recently had a large cardiac procedure including aortic valve replacement, who presents to the emergency room with fever and expressive aphasia. He subsequently was found to have bacteremia and evidence of a left parietal cerebrovascular accident. Although transesophageal echo does not demonstrate a vegetation, bacteremia in the setting of acute CVA without other explanation is consistent with left sided endocarditis. Blood cultures are showing gram-positive cocci in chains, preliminary known as streptococcal species. Two months postop, streptococcal species make up about 10% of pathogens identified. Unclear source for this pathogen-based on history. RECOMMENDATIONS: 1. Once organism is identified, will assess if further workup for source is noted. No evidence of cellulitis or oral problems identified at exam. 2. Agree with vancomycin. Patient's dose is appropriate for patient's creatinine clearance, which is approximately 70. Will continue vancomycin until ID of organism is noted, then would adjust antibiotics based on ID. Can discontinue ceftriaxone while await as it does not add coverage during this time. 3. Repeat blood cultures after 48 hours of antibiotics, which would draw at 6 a.m. on July 07. 4. Reviewed with patient and his that he will need 6 weeks of IV antibiotics via PICC line. Risks and benefits of IV antibiotic therapy, as well as PICC line placement were reviewed extensively with the patient and his at the bedside. TIME: 75 minutes, with greater than 50% time spent with education and counseling with the above-mentioned issues. Thank you for this consultation. /[id number]/MODL MTDD
[2016-07-05] MEDS: METOPROLOL SUCCINATE XR 50 MG TAB PO SCH (21:51)
[2016-07-06 05:12] LABS: HEMATOCRIT 31.4 % (40.0-51.0); HEMOGLOBIN 9.8 g/dL (13.7-17.5); MEAN CELL HEMOGLOBIN 28.7 pg (27.9-34.1); MEAN CELL HEMOGLOBIN CONCENTR. 31.2 g/dL (32.4-36.7); MEAN CELL VOLUME 91.8 fL (81.5-99.8); RED BLOOD CELL COUNT 3.42 10^6/uL (4.40-6.38); RED CELL DISTRIBUTION WIDTH 13.4 % (11.5-15.2)
[2016-07-06 05:38] LABS: ANION GAP 9 mEq/L (8-16); CALCIUM 8.7 mg/dL (8.5-10.4); CARBON DIOXIDE 25 mEq/l (22-31); CHLORIDE 108 mEq/L (97-110); CREATININE 0.8 mg/dL (0.7-1.3); GLOMERULAR FILTRATION RATE > 60; GLUCOSE 107 mg/dL (70-100); POTASSIUM 4.2 mEq/L (3.5-5.2); SODIUM 142 mEq/L (134-144)
--- NOTE | 2016-07-06 07:43 | NEUROPROG ---
Assessment: Suspected bacterial endocarditis with small embolic stroke most likely and mild expressive aphasia which is stable over the last 24 hours if not slightly improved. The patient is now off full anticoagulation considering the potential risk for hemorrhagic conversion and relatively low risk of ischemic stroke as Dr. Sandy has recommended. The patient will remain on a 6 week course of IV antibiotics. I will sign off, but please contact me with any additional questions. Subjective: I reviewed the consultations from the additional specialist. The patient says that he feels about the same with very mild trouble with speech but otherwise doing well. He denies any new numbness or weakness. He has not had any alleviating or exacerbating factors for symptoms, which he says remain mild in terms of the speech difficulty. He is not having any headache. Objective: Vital Signs Temp Pulse Resp BP Pulse Ox 36.9 C 87 17 116/62 92 07/06/16 04:00 07/06/16 04:00 07/06/16 04:00 07/06/16 04:00 07/06/16 04:00 Laboratory Results 07/06/16 05:00 07/06/16 05:00 07/05/16 07/06/16 07/07/16 05:59 05:59 05:59 Intake Total 1640 300 Balance 1640 300 PT 18.6 SEC (12.0-15.0) H 07/04/16 16:40 INR 1.55 (0.83-1.16) H 07/04/16 16:40 He is alert and attentive with clear and fluent speech but just a mild hesitancy on verbal expression. Pupils are 3 mm and reactive. Extraocular movements are intact. Normal facial sensation and strength. Motor examination reveals normal muscle bulk and tone with 5/5 strength and no abnormal movements. Sensation is preserved her temperature and light touch. Reflexes are 1+. I reviewed the head CT from yesterday which confirmed the development of a left posterior frontal parietal infarction which is small but consistent with producing the language impairment. Allergies/Adverse Reactions: Penicillins Allergy (Mild, Verified 04/29/16 14:34) Itching
[2016-07-06] MEDS: POTASSIUM CL 20 MEQ TAB PO SCH (08:37)
[2016-07-06] MEDS: VANCOMYCIN HCL/NORMAL SALINE 250 ML IV SCH ×2 (08:37→21:14)
[2016-07-06] MEDS: FUROSEMIDE 40 MG TAB PO SCH (08:37)
[2016-07-06] MEDS: ASPIRIN 81 MG CHEWABLE TAB PO SCH (08:37)
[2016-07-06] MEDS: ENOXAPARIN 40 MG/0.4 ML SYR SC SCH (08:41)
[2016-07-06] MEDS: DORZOLAMIDE/TIMOLOL 10 ML OPHT.BTL RTEYE SCH ×2 (08:44→20:35)
--- NOTE | 2016-07-06 12:36 | SOAPPROG ---
LILIBETH Progress Note Assessment/Plan: Assessment:1. embolic event presumable from sbe..on iv atb's without fevers...pt [place] have full course atb's for sbe...no cv changes..ok to d/c whenver home atb protocol arranged 2. permanent pacer..interrogation yesterday..normal function..pacer site well healed and non-tender Plan:1. f/u with dr sanchez at [facility] 2 wqeeks post d/c 07/06/16 12:33 Subjective: doing much better then yesterday..no cv c/o Objective: Vital Signs Temp Pulse Resp BP Pulse Ox 36.7 C 68 14 117/58 L 92 07/06/16 08:00 07/06/16 08:00 07/06/16 08:00 07/06/16 08:00 07/06/16 08:00 Laboratory Results 07/06/16 05:00 07/06/16 05:00 07/05/16 07/06/16 07/07/16 05:59 05:59 05:59 Intake Total 1640 300 Balance 1640 300 PT 18.6 SEC (12.0-15.0) H 07/04/16 16:40 INR 1.55 (0.83-1.16) H 07/04/16 16:40 Physical Exam - Physical Exam Respiratory: chest non-tender, lungs clear Cardiac/Chest: regular rate, rhythm ICD10 Worksheet Patient Problems: Problems Problem Status Diagnosed Fever Acute Leukocytosis Acute Acute blood loss anemia Acute S/P CABG x 1 Acute 04/29/16 S/P ablation of atrial fibrillation Acute 04/29/16 S/P aortic valve replacement with stentless valve Acute 04/29/16 S/P ascending aortic replacement Acute 04/29/16 Status post patent foramen ovale closure Acute 04/29/16 Aortic stenosis due to bicuspid aortic valve Chronic Ascending aortic aneurysm Chronic Chronic anticoagulation Chronic PFO (patent foramen ovale) Chronic Persistent atrial fibrillation Chronic
--- NOTE | 2016-07-06 15:49 | HOSPPROG ---
Hospitalist Progress Note Assessment/Plan: # Acute bacterial endocarditis- BRENDA consistent with endocarditis blood cultures for of 4/4 positive for strep source unclear based on workup thus far Ct chest (personally reviewed and interpreted) without infiltrate - UA negative - cont IV vancomycin until sensitivities available - surveillance cultures tomorrow - coordinating care with ID, CT surgery, cardiology and neurology # acute expressive aphasia- presumed secondary to acute MCA strokes from septic emboli with bacterial endocarditis- symptoms nearly completely resolved CT head repeat ( personally reviewed and interpreted) confirms evolving stroke - cont IV antibiotics - holding Eliquis secondary to risk of hemorrhagic conversion # strep bacteremia- currently on IV vancomycin awaiting sensitivities # recent porcine aortic valve replacement- no insufficiency regurgitation visualized on transthoracic or esophageal echo today - CT surgery and Cardiology following # transient white complex dysrhythmia- seen in echocardiography lab- no recurrence on telemetry pacer interrogation normal yesterday - continue telemetry # atrial fibrillation- status post atrial appendage removal and Maze procedure - oxygen saturations 90% on room air - holding Eliquis # acute leukocytosis- WBC 20-> 10- presumed secondary to bacteremia - chest CT in urinalysis negative at presentation - continue above management # prophylaxis- Lovenox # diet cardiac # disposition greater than 2 midnights as the patient is presenting with severe bacteremia and endocarditis I have discussed the case with infectious Disease- treating with single agent vancomycin until sensitivities available Subjective: feeling much better word-finding difficulties nearly resolved Objective: Vital Signs Temp Pulse Resp BP Pulse Ox 36.7 C 73 20 130/58 H 93 07/06/16 08:00 07/06/16 12:00 07/06/16 12:00 07/06/16 12:00 07/06/16 12:00 Laboratory Results 07/06/16 05:00 07/06/16 05:00 07/05/16 07/06/16 07/07/16 05:59 05:59 05:59 Intake Total 1640 300 Balance 1640 300 PT 18.6 SEC (12.0-15.0) H 07/04/16 16:40 INR 1.55 (0.83-1.16) H 07/04/16 16:40 - Physical Exam Constitutional: appears nourished Eyes: anicteric sclera Ears, Nose, Mouth, Throat: moist mucous membranes Cardiovascular: regular rate and rhythym, no murmur, rub, or gallop Respiratory: no respiratory distress Gastrointestinal: normoactive bowel sounds, soft, non-tender abdomen Genitourinary: no bladder fullness Skin: warm, normal color Musculoskeletal: No asymmetric calves Neurologic: AAOx3 Psychiatric: interacting appropriately, not anxious Lymph, Heme, Immunologic: no cervical LAD ICD10 Worksheet Patient Problems: Problems Problem Status Diagnosed Fever Acute Leukocytosis Acute Acute blood loss anemia Acute S/P CABG x 1 Acute 04/29/16 S/P ablation of atrial fibrillation Acute 04/29/16 S/P aortic valve replacement with stentless valve Acute 04/29/16 S/P ascending aortic replacement Acute 04/29/16 Status post patent foramen ovale closure Acute 04/29/16 Aortic stenosis due to bicuspid aortic valve Chronic Ascending aortic aneurysm Chronic Chronic anticoagulation Chronic PFO (patent foramen ovale) Chronic Persistent atrial fibrillation Chronic
--- NOTE | 2016-07-06 18:38 | PCMIDPN ---
Assessment/Plan: Assessment/Plan: * S. mitis/oralis bacteremia with MCA stroke consistent with embolic phenomenon consistent with prosthetic valve endocarditis despite BRENDA not showing vegetation : Continue vancomycin pending susceptibility profile. Repeat blood cultures in am to document clearing of bacteremia. Plan 6 weeks of antibiotic therapy. Vancomycin trough scheduled for this pm. Clinical findings and plan discussed with patient. 07/06/16 18:33 Subjective: Feels better. No chills. Feels like word-finding improved and speech more fluent. Objective: Vital Signs Temp Pulse Resp BP Pulse Ox 36.8 C 71 20 129/65 H 94 07/06/16 16:00 07/06/16 16:00 07/06/16 16:00 07/06/16 16:00 07/06/16 16:00 Laboratory Results 07/06/16 05:00 07/06/16 05:00 07/05/16 07/06/16 07/07/16 05:59 05:59 05:59 Intake Total 6908 047 5072 Balance 3046 839 6502 Vancomycin #2 Blood cultures 2/2 S. mitis/oralis - Physical Exam General Appearance: alert, no apparent distress EENT: pharynx normal, No conjunctival petechiae Respiratory: lungs clear, No respiratory distress Cardiac/Chest: regular rate, rhythm, other (pacemaker site nontender without erythema), No systolic murmur Extremities: No inflammation Abdomen: non-tender, No distended Skin: No embolic lesions ICD10 Worksheet Patient Problems: Problems Problem Status Diagnosed Fever Acute Leukocytosis Acute Acute blood loss anemia Acute S/P CABG x 1 Acute 04/29/16 S/P ablation of atrial fibrillation Acute 04/29/16 S/P aortic valve replacement with stentless valve Acute 04/29/16 S/P ascending aortic replacement Acute 04/29/16 Status post patent foramen ovale closure Acute 04/29/16 Aortic stenosis due to bicuspid aortic valve Chronic Ascending aortic aneurysm Chronic Chronic anticoagulation Chronic PFO (patent foramen ovale) Chronic Persistent atrial fibrillation Chronic
[2016-07-06] MEDS: METOPROLOL SUCCINATE XR 50 MG TAB PO SCH (20:35)
[2016-07-06] MEDS: TAMSULOSIN HCL 0.4 MG CAP PO SCH (20:35)
[2016-07-06] MEDS: ATORVASTATIN CALCIUM 10 MG TAB PO SCH (20:35)
[2016-07-06] MEDS: VANCOMYCIN 1.25 GM in D5W 250 ML IV SCH (20:35)
[2016-07-07 05:34] LABS: HEMATOCRIT 32.3 % (40.0-51.0); HEMOGLOBIN 10.5 g/dL (13.7-17.5); MEAN CELL HEMOGLOBIN 28.9 pg (27.9-34.1); MEAN CELL HEMOGLOBIN CONCENTR. 32.5 g/dL (32.4-36.7); RED BLOOD CELL COUNT 3.63 10^6/uL (4.40-6.38); RED CELL DISTRIBUTION WIDTH 13.3 % (11.5-15.2)
[2016-07-07] MEDS: FUROSEMIDE 40 MG TAB PO SCH (08:28)
[2016-07-07] MEDS: ASPIRIN 81 MG CHEWABLE TAB PO SCH (08:28)
[2016-07-07] MEDS: POTASSIUM CL 20 MEQ TAB PO SCH (08:28)
[2016-07-07] MEDS: ENOXAPARIN 40 MG/0.4 ML SYR SC SCH (08:29)
[2016-07-07] MEDS: VANCOMYCIN 1.25 GM in D5W 250 ML IV SCH (08:29)
[2016-07-07] MEDS: DORZOLAMIDE/TIMOLOL 10 ML OPHT.BTL RTEYE SCH ×2 (08:38→19:35)
--- NOTE | 2016-07-07 14:20 | HOSPPROG ---
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 Expressive aphasia is nearly resolved. Afebrile. ?Source, appreciate ID assistance. -Cont IV Vanc, 6 weeks therapy planned -Repeat BCx's today -Cont anti-platelet therapy and statin for CVA A fib s/p KAYLA ligation - Eliquis held per CV surgery recommendations S/P AVR - appreciate CV surgery input CAD s/p CABG x1 - CP free. Cont ASA, BB, statin Hypertension - well controlled on metoprolol. DVT PPLX - Lovenox Full code Dispo - cont inpt Subjective: Pt feels well. Speech difficulties are nearly completely resolved. No fevers/chills. Eating well. Objective: Vital Signs Temp Pulse Resp BP Pulse Ox 36.5 C 70 20 99/63 L 95 07/07/16 07:43 07/07/16 11:20 07/07/16 11:20 07/07/16 11:20 07/07/16 11:20 Laboratory Results 07/07/16 05:15 07/06/16 05:00 07/06/16 07/07/16 07/08/16 05:59 05:59 05:59 Intake Total 300 1800 Balance 300 1800 PT 18.6 SEC (12.0-15.0) H 07/04/16 16:40 INR 1.55 (0.83-1.16) H 07/04/16 16:40 - Physical Exam Constitutional: no apparent distress Eyes: PERRL Ears, Nose, Mouth, Throat: moist mucous membranes Cardiovascular: regular rate and rhythym, no murmur, rub, or gallop Respiratory: no respiratory distress, clear to auscultation Gastrointestinal: normoactive bowel sounds, soft, non-tender abdomen Skin: warm Neurologic: AAOx3 Psychiatric: interacting appropriately ICD10 Worksheet Patient Problems: Problems Problem Status Diagnosed Fever Acute Leukocytosis Acute Acute blood loss anemia Acute S/P CABG x 1 Acute 04/29/16 S/P ablation of atrial fibrillation Acute 04/29/16 S/P aortic valve replacement with stentless valve Acute 04/29/16 S/P ascending aortic replacement Acute 04/29/16 Status post patent foramen ovale closure Acute 04/29/16 Aortic stenosis due to bicuspid aortic valve Chronic Ascending aortic aneurysm Chronic Chronic anticoagulation Chronic PFO (patent foramen ovale) Chronic Persistent atrial fibrillation Chronic
--- NOTE | 2016-07-07 15:01 | SOAPPROG ---
LILIBETH Progress Note Assessment/Plan: Assessment:1. 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 permanent pacer..interrogation yesterday..normal function..pacer site well healed and non-tender..pt to follow up with dr sanchez post hospital Plan:1. f/u with dr sanchez at [facility] 1- 2 weeks post d/c 07/06/16 12:33 07/07/16 15:00 Subjective: doing well..no cv issues Objective: Vital Signs Temp Pulse Resp BP Pulse Ox 36.5 C 70 20 99/63 L 95 07/07/16 07:43 07/07/16 11:20 07/07/16 11:20 07/07/16 11:20 07/07/16 11:20 Laboratory Results 07/07/16 05:15 07/06/16 05:00 07/06/16 07/07/16 07/08/16 05:59 05:59 05:59 Intake Total 300 1800 Balance 300 1800 PT 18.6 SEC (12.0-15.0) H 07/04/16 16:40 INR 1.55 (0.83-1.16) H 07/04/16 16:40 ICD10 Worksheet Patient Problems: Problems Problem Status Diagnosed Fever Acute Leukocytosis Acute Acute blood loss anemia Acute S/P CABG x 1 Acute 04/29/16 S/P ablation of atrial fibrillation Acute 04/29/16 S/P aortic valve replacement with stentless valve Acute 04/29/16 S/P ascending aortic replacement Acute 04/29/16 Status post patent foramen ovale closure Acute 04/29/16 Aortic stenosis due to bicuspid aortic valve Chronic Ascending aortic aneurysm Chronic Chronic anticoagulation Chronic PFO (patent foramen ovale) Chronic Persistent atrial fibrillation Chronic
--- NOTE | 2016-07-07 17:17 | PCMIDPN ---
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 The high-grade bacteremia plus the embolic phenomenon make the diagnosis of endocarditis most likely. Will discontinue vancomycin and start ceftriaxone 2 g IV Q 24 hours. Patient has a history of a pruritic rash without desquamation to penicillin in 195. Given the minor reaction in the fact that most of these penicillin allergies of that area were due to contaminant within the fermentation process, I feel that trialing a cephalosporin is reasonable. Plan: 1. Discontinue vancomycin. 2. Start ceftriaxone 2 g IV Q 24 hours. 07/07/16 18:32 Subjective: Patient is resting in his hospital bed. He denies any new complaints. Says he feels better than he did a couple days ago. No fevers or chills. Objective: Vancomycin # 3 Vital Signs Temp Pulse Resp BP Pulse Ox 37.0 C 67 20 127/55 H 92 07/07/16 15:39 07/07/16 15:39 07/07/16 15:39 07/07/16 15:39 07/07/16 15:39 Laboratory Results 07/07/16 05:15 07/06/16 05:00 07/06/16 07/07/16 07/08/16 05:59 05:59 05:59 Intake Total 300 1800 Balance 300 1800 - Physical Exam General Appearance: WD/WN, alert, no apparent distress, non-toxic Respiratory: lungs clear, normal breath sounds, No respiratory distress Cardiac/Chest: regular rate, rhythm, No tachycardia Skin: normal color, warm/dry, No rash Neuro/Psych: alert, normal mood/affect, oriented x 3 ICD10 Worksheet Patient Problems: Problems Problem Status Diagnosed Fever Acute Leukocytosis Acute Acute blood loss anemia Acute S/P CABG x 1 Acute 04/29/16 S/P ablation of atrial fibrillation Acute 04/29/16 S/P aortic valve replacement with stentless valve Acute 04/29/16 S/P ascending aortic replacement Acute 04/29/16 Status post patent foramen ovale closure Acute 04/29/16 Aortic stenosis due to bicuspid aortic valve Chronic Ascending aortic aneurysm Chronic Chronic anticoagulation Chronic PFO (patent foramen ovale) Chronic Persistent atrial fibrillation Chronic
[2016-07-07] MEDS: TAMSULOSIN HCL 0.4 MG CAP PO SCH (19:36)
[2016-07-07] MEDS: METOPROLOL SUCCINATE XR 50 MG TAB PO SCH (19:36)
[2016-07-07] MEDS: ATORVASTATIN CALCIUM 10 MG TAB PO SCH (19:36)
[2016-07-08] MEDS: POTASSIUM CL 20 MEQ TAB PO SCH (09:03)
[2016-07-08] MEDS: ASPIRIN 81 MG CHEWABLE TAB PO SCH (09:04)
[2016-07-08] MEDS: ENOXAPARIN 40 MG/0.4 ML SYR SC SCH (09:04)
[2016-07-08] MEDS: FUROSEMIDE 40 MG TAB PO SCH (09:04)
[2016-07-08] MEDS: cefTRIAXone 2 GM in D5W 50 ML IV SCH (09:04)
[2016-07-08] MEDS: DORZOLAMIDE/TIMOLOL 10 ML OPHT.BTL RTEYE SCH ×2 (09:05→20:40)
--- NOTE | 2016-07-08 14:12 | SOAPPROG ---
S[facility] Progress Note Assessment/Plan: Assessment:1. 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 permanent pacer..interrogation yesterday..normal function..pacer site well healed and non-tender..[facility] Plan:1. f/u with dr sanchez at [facility] next (appt already made) 07/06/16 12:33 07/07/16 15:00 07/08/16 14:10 Subjective: doing well..no cv problems Objective: Vital Signs Temp Pulse Resp BP Pulse Ox 36.6 C 98 16 132/64 H 94 07/08/16 11:34 07/08/16 11:34 07/08/16 11:34 07/08/16 11:34 07/08/16 11:34 Laboratory Results 07/07/16 05:15 07/06/16 05:00 07/07/16 07/08/16 07/09/16 05:59 05:59 05:59 Intake Total 1800 300 Balance 1800 300 PT 18.6 SEC (12.0-15.0) H 07/04/16 16:40 INR 1.55 (0.83-1.16) H 07/04/16 16:40 ICD10 Worksheet Patient Problems: Problems Problem Status Diagnosed Fever Acute Leukocytosis Acute Acute blood loss anemia Acute S/P CABG x 1 Acute 04/29/16 S/P ablation of atrial fibrillation Acute 04/29/16 S/P aortic valve replacement with stentless valve Acute 04/29/16 S/P ascending aortic replacement Acute 04/29/16 Status post patent foramen ovale closure Acute 04/29/16 Aortic stenosis due to bicuspid aortic valve Chronic Ascending aortic aneurysm Chronic Chronic anticoagulation Chronic PFO (patent foramen ovale) Chronic Persistent atrial fibrillation Chronic
--- NOTE | 2016-07-08 18:08 | PCMIDPN ---
Assessment/Plan: Assessment/Plan: * S. 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 Tolerating ceftriaxone to date. Repeat blood cultures no growth to date. If remain negative tomorrow, will place PICC with plan for 6 weeks of IV antibiotics. Weekly CBC and CMP on antibiotic therapy. 07/08/16 18:04 Subjective: Patient without complaints. No rash or itching with ceftriaxone. Speech improved. Objective: Vital Signs Temp Pulse Resp BP Pulse Ox 36.7 C 70 18 129/51 H 92 07/08/16 15:45 07/08/16 15:45 07/08/16 15:45 07/08/16 15:45 07/08/16 15:45 Laboratory Results 07/07/16 05:15 07/06/16 05:00 07/07/16 07/08/16 07/09/16 05:59 05:59 05:59 Intake Total 4411 955 8000 Balance 7067 888 4625 Ceftriaxone #2, Antibiotics #4 Blood cultures 07/07/16 no growth to date - Physical Exam General Appearance: alert, no apparent distress EENT: pharynx normal, No conjunctival petechiae Respiratory: lungs clear, No respiratory distress Cardiac/Chest: regular rate, rhythm, No systolic murmur Extremities: No inflammation Abdomen: non-tender, No distended Skin: No embolic lesions ICD10 Worksheet Patient Problems: Problems Problem Status Diagnosed Fever Acute Leukocytosis Acute Acute blood loss anemia Acute S/P CABG x 1 Acute 04/29/16 S/P ablation of atrial fibrillation Acute 04/29/16 S/P aortic valve replacement with stentless valve Acute 04/29/16 S/P ascending aortic replacement Acute 04/29/16 Status post patent foramen ovale closure Acute 04/29/16 Aortic stenosis due to bicuspid aortic valve Chronic Ascending aortic aneurysm Chronic Chronic anticoagulation Chronic PFO (patent foramen ovale) Chronic Persistent atrial fibrillation Chronic
--- NOTE | 2016-07-08 18:16 | HOSPPROG ---
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 Expressive aphasia is nearly resolved. Afebrile. ?Source, appreciate ID assistance. -Atbx tailored back to Ceftriaxone 2 g IV, plan for 6 weeks therapy -Repeat BCx's NGTD -Cont anti-platelet therapy and statin for CVA A fib s/p KAYLA ligation - Eliquis held per CV surgery recommendations S/P AVR - appreciate CV surgery input CAD s/p CABG x1 - CP free. Cont ASA, BB, statin Hypertension - well controlled on metoprolol. DVT PPLX - Lovenox Full code Dispo - cont inpt Subjective: Pt feels well. No CP or SOB. Speech much improved. No fevers. Objective: Vital Signs Temp Pulse Resp BP Pulse Ox 36.7 C 70 18 129/51 H 92 07/08/16 15:45 07/08/16 15:45 07/08/16 15:45 07/08/16 15:45 07/08/16 15:45 Laboratory Results 07/07/16 05:15 07/06/16 05:00 07/07/16 07/08/16 07/09/16 05:59 05:59 05:59 Intake Total 7246 477 3816 Balance 5934 799 6186 PT 18.6 SEC (12.0-15.0) H 07/04/16 16:40 INR 1.55 (0.83-1.16) H 07/04/16 16:40 - Physical Exam Constitutional: no apparent distress Eyes: PERRL Ears, Nose, Mouth, Throat: moist mucous membranes Cardiovascular: regular rate and rhythym Respiratory: no respiratory distress, clear to auscultation Gastrointestinal: normoactive bowel sounds, soft, non-tender abdomen Skin: warm Neurologic: AAOx3 Psychiatric: interacting appropriately ICD10 Worksheet Patient Problems: Problems Problem Status Diagnosed Fever Acute Leukocytosis Acute Acute blood loss anemia Acute S/P CABG x 1 Acute 04/29/16 S/P ablation of atrial fibrillation Acute 04/29/16 S/P aortic valve replacement with stentless valve Acute 04/29/16 S/P ascending aortic replacement Acute 04/29/16 Status post patent foramen ovale closure Acute 04/29/16 Aortic stenosis due to bicuspid aortic valve Chronic Ascending aortic aneurysm Chronic Chronic anticoagulation Chronic PFO (patent foramen ovale) Chronic Persistent atrial fibrillation Chronic
[2016-07-08] MEDS: METOPROLOL SUCCINATE XR 50 MG TAB PO SCH (20:41)
[2016-07-08] MEDS: ATORVASTATIN CALCIUM 10 MG TAB PO SCH (20:41)
[2016-07-08] MEDS: TAMSULOSIN HCL 0.4 MG CAP PO SCH (20:41)
[2016-07-09 07:19] VITALS: O2SAT 93
[2016-07-09] MEDS: ASPIRIN 81 MG CHEWABLE TAB PO SCH (09:33)
[2016-07-09] MEDS: POTASSIUM CL 20 MEQ TAB PO SCH (09:33)
[2016-07-09] MEDS: ENOXAPARIN 40 MG/0.4 ML SYR SC SCH (09:33)
[2016-07-09] MEDS: FUROSEMIDE 40 MG TAB PO SCH (09:33)
[2016-07-09] MEDS: cefTRIAXone 2 GM in D5W 50 ML IV SCH (09:33)
[2016-07-09] MEDS: DORZOLAMIDE/TIMOLOL 10 ML OPHT.BTL RTEYE SCH (09:34)
[2016-07-09] MEDS ORDERED: ALTEPLASE 2 MG VIAL IVP PRN (10:12)
--- NOTE | 2016-07-09 10:35 | PDIAF ---
- Diagnosis Diagnosis: Streptococcus oralis bacteremia/endocarditis Code Status: Full Code - Medication Management Discharge Medications: Medications to Continue on Transfer Calcium Carbonate/Vitamin D3 [Calcium 500 + Vit D Caplet] 1 tab PO DAILY [Last Taken 07/04/16 07:00] Clobetasol 0.05% [Temovate Cream] 1 martha TP BID PRN 04/28/16 [Last Taken 06/27/16 ] Dorzolamide/Timolol [Cosopt (*)] 1 drops RTEYE BID 04/28/16 [Last Taken 07:00] Metoprolol Succinate Xr [Toprol Xl 50 mg (*)] 50 mg PO HS 04/28/16 [Last Taken 07/03/16 18:00] Multivitamins [Multivitamin (*)] 1 tab PO DAILY 04/28/16 [Last Taken 07/04/16 07 :00] Simvastatin [Zocor] 20 mg PO HS 04/28/16 [Last Taken 07/03/16 18:00] Tamsulosin HCl [Flomax 0.4 MG (*)] 0.4 mg PO HS 04/28/16 [Last Taken 07/03/16 18 :00] Apixaban [Eliquis] 5 mg PO BID #0 tab 05/05/16 [Last Taken 07/04/16 07:00] Aspirin [Aspirin 81mg (*)] 81 mg PO DAILY #100 tab.chew 05/05/16 [Last Taken 07:00] Furosemide [Lasix 80 MG (*)] 40 mg PO DAILY 07/04/16 [Last Taken 07/04/16 07:00] Potassium Cl [Klor-Con 20 meq (*)] 20 meq PO DAILY 07/04/16 [Last Taken 07:00] Die Designer Antibiotics: Ceftriaxone 2 g IV Q 24 hours Die Designer Antibiotic Stop Date: 08/18/16 Discharge Medications: Refer to the Discharge Home Medication list for PRN reason. PICC Care - Routine: Yes - Orders Services needed: Home Detention Care Face to Face: I certify that this patient was under my care and that I had the required [id number] encounter meeting the encounter requirements on the discharge day. My findings support the fact that the patient is homebound as defined in CMS Chapter 7 Medicare Benefits Manual 30.1.1, The condition of the patient is such that there exists a normal inability to leave home and consequently, leaving home would require a considerable and taxing effort. Diet Texture: Regular Texture Diet, Thin Liquids, Meds Whole w/Liquids - Labs/Radiology CBC Date: 07/12/16 (Weekly Q Monday) CMP Date: 07/12/16 (Weekly Q Monday) Call or Fax Lab and Imaging Results to: Dr. Torres, - Follow Up Care Current Providers and Referrals: ANN MARIE STAFFORD [Primary Care Provider] - As per Instructions
--- NOTE | 2016-07-09 10:38 | PCMIDPN ---
Assessment/Plan: Assessment/Plan: * S. 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 Continue clinical improvement. Repeat blood culture show clearing of bacteremia. Will place PICC line today. Plan 6 weeks of IV ceftriaxone. Reviewed findings and plan with Dr. Sandy. Agree with dental evaluation as outpatient given isolation of oropharyngeal organism and plans for repeat transthoracic echocardiogram to ensure no change in valve function over time. Okay for discharge today from ID perspective if home care antibiotics arranged. 07/09/16 10:36 Subjective: Patient without complaints. Objective: Vital Signs Temp Pulse Resp BP Pulse Ox 36.6 C 65 20 127/59 H 93 07/09/16 07:18 07/09/16 07:18 07/09/16 07:18 07/09/16 07:18 07/09/16 07:18 Laboratory Results 07/07/16 05:15 07/06/16 05:00 07/08/16 07/09/16 07/10/16 05:59 05:59 05:59 Intake Total 300 1820 Balance 300 1820 Ceftriaxone # 3 Blood cultures 07/07/2015 no growth - Physical Exam General Appearance: alert, no apparent distress EENT: pharynx normal, No conjunctival petechiae Respiratory: lungs clear, No respiratory distress Cardiac/Chest: regular rate, rhythm, No systolic murmur Abdomen: non-tender, No distended Skin: No embolic lesions ICD10 Worksheet Patient Problems: Problems Problem Status Diagnosed Fever Acute Leukocytosis Acute Acute blood loss anemia Acute S/P CABG x 1 Acute 04/29/16 S/P ablation of atrial fibrillation Acute 04/29/16 S/P aortic valve replacement with stentless valve Acute 04/29/16 S/P ascending aortic replacement Acute 04/29/16 Status post patent foramen ovale closure Acute 04/29/16 Aortic stenosis due to bicuspid aortic valve Chronic Ascending aortic aneurysm Chronic Chronic anticoagulation Chronic PFO (patent foramen ovale) Chronic Persistent atrial fibrillation Chronic
--- NOTE | 2016-07-09 11:10 | PDIAF ---
- Diagnosis Diagnosis: Streptococcus oralis bacteremia/endocarditis Code Status: Full Code - Medication Management Discharge Medications: Medications to Continue on Transfer Calcium Carbonate/Vitamin D3 [Calcium 500 + Vit D Caplet] 1 tab PO DAILY [Last Taken 07/04/16 07:00] Clobetasol 0.05% [Temovate Cream] 1 martha TP BID PRN 04/28/16 [Last Taken 06/27/16 ] Dorzolamide/Timolol [Cosopt (*)] 1 drops RTEYE BID 04/28/16 [Last Taken 07:00] Metoprolol Succinate Xr [Toprol Xl 50 mg (*)] 50 mg PO HS 04/28/16 [Last Taken 07/03/16 18:00] Multivitamins [Multivitamin (*)] 1 tab PO DAILY 04/28/16 [Last Taken 07/04/16 07 :00] Simvastatin [Zocor] 20 mg PO HS 04/28/16 [Last Taken 07/03/16 18:00] Tamsulosin HCl [Flomax 0.4 MG (*)] 0.4 mg PO HS 04/28/16 [Last Taken 07/03/16 18 :00] Aspirin [Aspirin 81mg (*)] 81 mg PO DAILY #100 tab.chew 05/05/16 [Last Taken 07:00] Furosemide [Lasix 80 MG (*)] 40 mg PO DAILY 07/04/16 [Last Taken 07/04/16 07:00] Potassium Cl [Klor-Con 20 meq (*)] 20 meq PO DAILY 07/04/16 [Last Taken 07:00] cefTRIAXone [Rocephin] 2 gm IV DAILY #0 vial 07/09/16 [Last Taken Unknown] Bale Tie Machine Operator Antibiotics: Ceftriaxone 2 g IV Q 24 hours Bale Tie Machine Operator Antibiotic Stop Date: 08/18/16 Discharge Medications: Refer to the Discharge Home Medication list for PRN reason. PICC Care - Routine: Yes - Orders Services needed: Home Group Home Care Face to Face: I certify that this patient was under my care and that I had the required [id number] encounter meeting the encounter requirements on the discharge day. My findings support the fact that the patient is homebound as defined in CMS Chapter 7 Medicare Benefits Manual 30.1.1, The condition of the patient is such that there exists a normal inability to leave home and consequently, leaving home would require a considerable and taxing effort. Diet Recommendation: cardiac -low fat low salt Diet Texture: Regular Texture Diet, Thin Liquids, Meds Whole w/Liquids - Labs/Radiology CBC Date: 07/12/16 (Weekly Q Monday) CMP Date: 07/12/16 (Weekly Q Monday) Call or Fax Lab and Imaging Results to: Dr. Torres, - Follow Up Care Current Providers and Referrals: ANN MARIE STAFFORD [Primary Care Provider] - As per Instructions Piotr Quiroz MD [Medical Doctor] -
[2016-07-09 12:56] VITALS: BP 118/62; PULSE 71; RESP 18; TEMP 98.1
--- NOTE | 2016-07-09 16:58 | IR ---
Imaging-Guided Peripherally Inserted Central Catheter History: Central line access for endocarditis.. Prophylactic Antibiotic: Cefazolin was not ordered and administered for antimicrobial prophylaxis be cause it was not medically necessary for this procedure. VTE Prophylaxis: There is not an order for VTE prophylaxis to be given within 24 hours after procedu re end time because it was not medically necessary for this procedure. Crosscutting Measure: Patient's current list of medications including all known prescriptions, over- the-counters, herbals, and vitamin/mineral/dietary supplements are reviewed. Medications' name, dosa ge, frequency, and route of administration are confirmed. Technique: Following informed consent, the right arm was prepped and draped in sterile fashion. 1% Xy locaine was used for local anesthetic. All elements of maximal sterile barrier technique including cap, mask, sterile gown, sterile gloves, large sterile sheet, hand hygiene, and 2% chlorhexidine for cutaneous antisepsis, followed. Ultrasound evaluation of potential access site was performed. After successfully identifying a patent vessel, ultrasound guidance was used to puncture the vein. A permanent recording was created for the patient's record. Ultrasound transducer was placed in sterile sleeve and used for real-time imaging guidance over steri le gel to enter the basilic vein. 0.018 measuring wire was passed centrally under fluoroscopic contro l. A skin adam with scalpel blade was followed by removing the access needle. A 4 Monegasque pee-away she ath was followed by a 4 Monegasque single-lumen central catheter, trimmed to 40 cm length. The tip of t he catheter was positioned centrally and the guidewire removed. A single fluoroscopic spot image was obtained in inspiration. The hub of the catheter was fixed to the skin using a sterile StatLock adhes rain device, and a sterile dressing was applied. The catheter was irrigated. Findings: The tip of the central catheter terminates at the junction of the superior vena cava and th e right atrium. Fluoroscopy: 0.1 minutes, 1 images Impression: 4 Monegasque single lumen peripherally inserted central catheter is ready to use.
--- NOTE | 2016-07-09 17:03 | GDS ---
[f rep st] DISCHARGE SUMMARY DISCHARGE DIAGNOSES: 1. Streptococcus mitis bacteremia. 2. Prosthetic valve endocarditis. 3. Embolic cerebrovascular accident. 4. Atrial fibrillation status post left atrial appendage ligation with discontinuation of anticoagul ation. 5. Status post aortic valve replacement. 6. Coronary artery disease, status post coronary artery bypass graft x1. 7. Hypertension. CONSULTANTS: 1. Dr. James Xiao, Neurology. 2. Dr. Xavier Paniagua, Cardiology. 3. Dr. Justin Sandy, Cardiovascular Surgery. 4. Dr. Mikaela Torres, Infectious Disease. HISTORY: For details, please see dictated history and physical dated July 04, 2016. In brief, th e patient is a 76-year-old male with a history of atrial fibrillation and aortic stenosis, who underw ent aortic valve replacement along with a Núñez maze procedure and resection of left atrial appendage a long with CABG and closure of a patent foramen ovale in April 2016. During this procedure, he dev eloped cardiac rhythm problems with a junctional escape rhythm and had a permanent pacemaker implante d. He did well postoperatively until the day of presentation, when he arrived to the Emergency Depar tment reporting 7-10 days of fevers, but his symptom of concern that brought them in was the developm ent of acute-onset expressive aphasia. He was admitted to the hospital for further evaluation. HOSPITAL COURSE: The patient was admitted to the Medical-Surgical Unit. A CT of his head was negati ve for acute infarct or hemorrhage. He was unable to proceed with MRI due to his pacemaker, so CT an giograms of his head and neck were performed, both of which were normal. He underwent both transthor acic echocardiogram followed by transesophageal echocardiogram due to concern for endocarditis as a s ource of his fevers and possible embolic CVA. This showed no evidence of mass or vegetation. Joe major, clinical suspicion remained high for prosthetic valve endocarditis, and he was treated with IV ant ibiotics. Ultimately, his blood cultures grew Streptococcus mitis sensitive to ceftriaxone. Infecti ous Disease consult was obtained to help manage his IV antibiotics and he will be discharged on a pro longed course for 6 weeks. He was also evaluated by Cardiology, as well as his cardiovascular surgeo n, who recommended discontinuation of Eliquis, as this was prescribed for his postop course after his left atrial appendage procedure. It was felt that the risk outweighed the benefit in the setting of acute endocarditis and, thus, his anticoagulation was discontinued. The patient also had a neurolog y evaluation. Ultimately, it was felt he suffered a left MCA territory CVA which was likely embolic in origin in the setting of endocarditis. He was treated with aspirin and statin and will continue t hese on discharge. DISPOSITION: Patient is discharged home in stable condition. DISCHARGE MEDICATIONS: Please see [facility] for completed, updated outpatient medication list. New medications on discharge include ceftriaxone 2 g IV daily with a stop date of August 18, 2016. FOLLOWUP: 1. Dr. Piotr Quiroz, Cardiology. 2. Dr. Mikaela Torres, Infectious Disease. 3. Dr. James Xiao, Neurology. 4. Dr. Julius Harmon, primary care. /[id number]/MODL
== END 2016-07-09 17:05 | disposition home health service (06) | DRG 288 ==
LOC: F3N 20:11
PROVIDERS: ADMIT Hospitalist; ATTEND Hospitalist
PROC: B246ZZ4 Ultrasonography of Right and Left Heart, Transesophageal (ICD-10-PCS; principal; 2016-07-05)
PROC: 02HV43Z Insertion of Infusion Device into Superior Vena Cava, Percutaneous Endoscopic Approach (ICD-10-PCS; 2016-07-09)
DX: I33.0 Acute and subacute infective endocarditis (principal); R78.81 Bacteremia; B95.4 Other streptococcus as the cause of diseases classified elsewhere; I63.412 Cerebral infarction due to embolism of left middle cerebral artery; R47.01 Aphasia; I25.10 Atherosclerotic heart disease of native coronary artery without angina pectoris; I10 Essential (primary) hypertension; I34.0 Nonrheumatic mitral (valve) insufficiency; N40.0 Benign prostatic hyperplasia without lower urinary tract symptoms; I48.91 Unspecified atrial fibrillation; Z95.0 Presence of cardiac pacemaker; Z95.2 Presence of prosthetic heart valve; Z95.1 Presence of aortocoronary bypass graft; Z79.01 Long term (current) use of anticoagulants; Z79.82 Long term (current) use of aspirin
CPT/HCPCS: 92507-GN; 92523-GN; 92610-GN; 96365; C1751; G8996-GN-CH; G8997-GN-CH; G8998-GN-CH; G9162-GN-CI; G9163-GN-CH; J0456; J0696; J1650; J2704; J3370; Q9967

== ENCOUNTER 2016-07-11 09:21 | Emergency (ER) | payer OTHER, MEDICARE ==
[2016-07-11 09:27] VITALS: O2SAT 93
--- NOTE | 2016-07-11 10:13 | EDPHY ---
H & P Stated Complaint: having prob with picc line/tx with abx for endocarditis Time Seen by Provider: 07/11/16 09:53 HPI/ROS: CHIEF COMPLAINT: Blood in PICC line HISTORY OF PRESENT ILLNESS: The patient is a 76 year old male with significant cardiac history, here to have his PICC line evaluated. The patient had a PICC line placed 2 days ago for endocarditis. He was admitted from 07/04/16 until yesterday. Today the PICC line had blood near the insertion site. The patient is anticoagulated. He denies numbness or cold sensation in his arm. REVIEW OF SYSTEMS: Aside from elements discussed in the HPI, a comprehensive 10-point review of systems was reviewed and is negative. PAST MEDICAL HISTORY: 1. History of aortic stenosis s/p aortic valve replacement 2. Pacemaker 3. Atrial fibrillation s/p [place] ablation 4. CAD s/p bypass grafting x1 5. Hypertension 6. Mitral regurgitation 7. Glaucoma 8. Benign prostatic hypertrophy SOCIAL HISTORY: at bedside. Nonsmoker. No drug use. No alcohol use. VITAL SIGNS: Reviewed by me GENERAL: Well-developed, well-nourished, resting comfortably in no respiratory distress. LUNGS: Clear to auscultation bilaterally, no wheezes, rhonchi or rales. CARDIAC: Regular rate and rhythm, no rubs, murmurs or gallops. EXTREMITIES: PICC line with bleeding at insert site, flows well. NEURO: Alert and oriented, grossly nonfocal. SKIN: Warm and dry, no rash. Portions of this note were transcribed by a medical engineer. I personally performed a history, physical exam, medical decision making, and confirmed accuracy of information the transcribed note. - Personal History Current Tetanus/Diphtheria Vaccine: Unsure - Medical/Surgical History Hx Asthma: No Hx Chronic Respiratory Disease: No Hx Diabetes: No Hx Cardiac Disease: Yes Hx Renal Disease: No Hx Cirrhosis: No Hx Alcoholism: No Hx HIV/AIDS: No Hx Splenectomy or Spleen Trauma: No Other PMH: AVR, afib, valve replament, cabg, BPH, right arm fx casted, tonsils/ endocarditis - Social History Smoking Status: Never smoked Constitutional: Initial Vital Signs Temperature (C) 36.5 C 07/11/16 09:25 Heart Rate 77 07/11/16 09:25 Respiratory Rate 17 07/11/16 09:25 Blood Pressure 156/66 H 07/11/16 09:25 O2 Sat (%) 93 07/11/16 09:25 O2 Delivery Mode Room Air Allergies/Adverse Reactions: Penicillins Allergy (Mild, Verified 07/11/16 09:22) Itching Home Medications: Medication Instructions Recorded Calcium Carbonate/Vitamin D3 1 tab PO DAILY 04/28/16 [Calcium 500 + Vit D Caplet] Clobetasol 0.05% [Temovate Cream] 1 martha TP BID PRN 04/28/16 Dorzolamide/Timolol [Cosopt (*)] 1 drops RTEYE BID 04/28/16 Metoprolol Succinate Xr [Toprol Xl 50 mg PO HS 04/28/16 50 mg (*)] Multivitamins [Multivitamin (*)] 1 tab PO DAILY 04/28/16 Simvastatin [Zocor] 20 mg PO HS 04/28/16 Tamsulosin HCl [Flomax 0.4 MG (*)] 0.4 mg PO HS 04/28/16 Aspirin [Aspirin 81mg (*)] 81 mg PO DAILY #100 tab.chew 05/05/16 Furosemide [Lasix 80 MG (*)] 40 mg PO DAILY 07/04/16 Potassium Cl [Klor-Con 20 meq (*)] 20 meq PO DAILY 07/04/16 cefTRIAXone [Rocephin] 2 gm IV DAILY #0 vial 07/09/16 Abx Unknown 07/11/16 Eliquis 07/11/16 Medical Decision Making - Diagnostics Imaging: Study: X-ray of the chest was obtained. Results: PICC line in place. Images were interpreted by the radiologist, Dr. Parker. I viewed the images myself on the PACS system. ED Course/Re-evaluation: PICC line flushed well. No signs of infection at the PICC site. Oozing and bleeding appears to be from the insertion site. I discussed the x-ray findings with Dr. Guillermina galarza. There may be a curvature of the PICC line versus overlying shadow of the humerus. However the line draws well and flows well. I reassured the family that the PICC line seems to be working appropriately and that they are safe to be discharged to continue his outpatient antibiotics. Differential Diagnosis: Differential diagnoses for the patient's symptom complex was considered including but not limited to thrombus in the PICC line, malpositioning of a PICC line, over-anticoagulated, hematoma at PICC line insertion, deep venous thrombus, platelet dysfunction. Departure - Departure Disposition: Home, Routine, Self-Care Clinical Impression: Bleeding from PICC line Condition: Good Instructions: Peripherally Inserted Central Catheters and Midline Catheters (ED ) Additional Instructions: Be sure the line is flushed after antibiotics. Keep a pressure dressing on the site. Return to the Emergency Department if PICC line appears infected or you develop new or worsening symptoms. Referrals: ANN MARIE STAFFORD [Primary Care Provider] - As per Instructions Report Scribed for: Rosario Pennington Report Scribed by: Liliana Schrader Date of Report: 07/11/16 Time of Report: 10:12
--- NOTE | 2016-07-11 11:20 | DX ---
Chest, PA and Lateral History: Recent PICC line placed , blood in line, evaluate position Comparison: July 04, 2016, chest CT April 28, 2016. Findings: A right arm PICC line is newly present since July 04. The tip of the catheter overlies t he region of the superior vena cava. Lungs are clear, without infiltrate or consolidation. Heart size is normal. A 9.6 mm round nodule overlying the posterior inferior corner of the T6 vertebral body, s een only on the lateral view, is stable since April 2016, and represents spurring involving the ri ght costovertebral junction There is no adenopathy or mass lesion. There is no pleural effusion . Bon es are unremarkable for age. 2 median sternotomy wires, a left chest wall pacer device and associated bipolar pacer leads and epicardial pacer leads remain in place. Impression: Good position of the PICC line.
[2016-07-11 11:21] VITALS: BP 134/65; PULSE 75; RESP 16; TEMP 98.1
== END 2016-07-11 11:20 | disposition home or self-care (01) ==
DX: T82.838A Hemorrhage due to vascular prosthetic devices, implants and grafts, initial encounter (principal); I25.810 Atherosclerosis of coronary artery bypass graft(s) without angina pectoris; I10 Essential (primary) hypertension; Z79.82 Long term (current) use of aspirin; Y71.2 Prosthetic and other implants, materials and accessory cardiovascular devices associated with adverse incidents

== ENCOUNTER → 2016-07-12 | Outpatient (CLI) | payer OTHER, MEDICARE | LOC: BHLMT 10:00 | PROVIDERS: ATTEND Internal Medicine Cardiovascular Disease | DX: I38 Endocarditis, valve unspecified (principal); I63.9 Cerebral infarction, unspecified; Z95.2 Presence of prosthetic heart valve; Z98.890 Other specified postprocedural states; Z86.79 Personal history of other diseases of the circulatory system; Z95.0 Presence of cardiac pacemaker | CPT/HCPCS: 93005-PO ==

== ENCOUNTER → 2016-07-19 | Outpatient (CLI) | payer OTHER, MEDICARE | LOC: BHLMT 10:00 | PROVIDERS: ATTEND Internal Medicine | DX: I48.91 Unspecified atrial fibrillation (principal); I35.9 Nonrheumatic aortic valve disorder, unspecified | CPT/HCPCS: 93306-PO ==

== ENCOUNTER → 2016-08-02 | Outpatient (CLI) | payer OTHER, MEDICARE | LOC: BHLMT 11:00 | PROVIDERS: ATTEND Internal Medicine Cardiovascular Disease | DX: I48.91 Unspecified atrial fibrillation (principal) | CPT/HCPCS: 93225-PO; 93226-PO ==

== ENCOUNTER 2016-08-10 12:50 | Day surgery (SDC) | payer OTHER, MEDICARE ==
[2016-08-10] MEDS ORDERED: BACITRACIN IRRIGATION/NS 50,000 UNITS/1,000 ML BTL IRR ONE (12:56)
[2016-08-10] MEDS ORDERED: DIAZEPAM 5 MG TAB PO ONE (12:56)
[2016-08-10] MEDS ORDERED: NS 1,000 ML IV ONE (12:56)
[2016-08-10] MEDS ORDERED: diphenhydrAMINE 25 MG CAP PO ONE (12:56)
--- NOTE | 2016-08-10 13:20 | CPEKG ---
Heart Rate: 81 RR Interval: 741 P-R Interval: 138 QRSD Interval: 76 QT Interval: 388 QTC Interval: 451 P [place]: 0 QRS [place]: 2 T Wave [place]: 56 EKG Severity - OTHERWISE NORMAL ECG - EKG Impression: SINUS RHYTHM EKG Impression: VENTRICULAR PREMATURE COMPLEX Electronically Signed By: Robbie Michaud 10-Aug-2016 14:38:35
[2016-08-10] MEDS ORDERED: VANCOMYCIN HCL/NORMAL SALINE 250 ML IV ONE (13:30)
[2016-08-10 13:45] LABS: % IMMATURE GRANULYOCYTES 0.4 % (0.0-1.1); ABSOLUTE IMMATURE GRANULOCYTES 0.03 10^3/uL (0.00-0.10); ADD DIFF? NO; ADD MORPH? NO; ADD SCAN? NO; ATYPICAL LYMPHOCYTE FLAG 10 (0-99); FRAGMENT RBC FLAG 0 (0-99); HEMOGLOBIN 11.4 g/dL (13.7-17.5); LEFT SHIFT FLG 0 (0-99); LIPEMIA HEMOLYSIS FLAG 80 (0-99); MEAN CELL HEMOGLOBIN 29.2 pg (27.9-34.1); MEAN CELL HEMOGLOBIN CONCENTR. 32.6 g/dL (32.4-36.7); MEAN CELL VOLUME 89.5 fL (81.5-99.8); MEAN PLATELET VOLUME 9.9 fL (8.7-11.7); PLATELET CLUMPS FLAG 0 (0-99); PLATELET COUNT 207 10^3/uL (150-400); RED BLOOD CELL COUNT 3.91 10^6/uL (4.40-6.38); RED CELL DISTRIBUTION WIDTH 14.8 % (11.5-15.2)
[2016-08-10 13:54] LABS: INR 1.25 (0.83-1.16); PROTIME(PATIENT) 15.7 SEC (12.0-15.0)
[2016-08-10 14:04] LABS: ANION GAP 11 mEq/L (8-16); CALCIUM 9.5 mg/dL (8.5-10.4); CARBON DIOXIDE 24 mEq/l (22-31); CHLORIDE 108 mEq/L (97-110); CREATININE 0.7 mg/dL (0.7-1.3); GLOMERULAR FILTRATION RATE > 60; GLUCOSE 97 mg/dL (70-100); SODIUM 143 mEq/L (134-144)
[2016-08-10] MEDS ORDERED: fentaNYL 100 MCG/2 ML INJ ONE (14:49)
[2016-08-10] MEDS ORDERED: LIDOCAINE 1% 30 ML SDV ONE (14:49)
[2016-08-10] MEDS ORDERED: LIDO/EPI 1% **for epidural** 30 ML SDV ONE (14:50)
[2016-08-10] MEDS ORDERED: BUPIVACAINE 0.5% 30 ML SDV ONE (14:50)
[2016-08-10] MEDS ORDERED: MIDAZOLAM 2 MG/2 ML VIAL ONE (14:50)
--- NOTE | 2016-08-10 16:30 | CPEKG ---
Heart Rate: 76 RR Interval: 789 P-R Interval: 152 QRSD Interval: 76 QT Interval: 392 QTC Interval: 441 P [place]: 127 QRS [place]: -1 T Wave [place]: 49 EKG Severity - OTHERWISE NORMAL ECG - EKG Impression: SINUS RHYTHM EKG Impression: PVC's Electronically Signed By: Robbie Michaud 11-Aug-2016 12:20:07
--- NOTE | 2016-08-10 16:38 | CPIP ---
DATE OF PROCEDURE: 08/10/2016 INDICATIONS: The patient is 76 years old. He has a history of valvular heart disease and underwent aortic valve replacement surgery in April. 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 At that time, a dual-chamber [employer] pacemaker was implant ed on May 04, 2016. Subsequently, he developed prosthetic valve endocarditis. In consultation with Infectious Disease, it was thought that his best chance for eradication of this infection was to explant his pacemaker. PROCEDURE: Explantation of a dual-chamber pacemaker. TECHNIQUE: Following informed consent, the patient was brought to the cardiac catheterization labor atory fasting. He was given intravenous vancomycin prior to the procedure. Left chest was prepped and draped in the usual sterile fashion, and 2% lidocaine was infiltrated into the skin overlying th e existing pacemaker. A #10 blade was used to make a 3 cm incision. Using blunt dissection, the ca psule was identified which was opened sharply. The device was then delivered from the pocket. The leads were freed from the surrounding scar tissue with electrocautery and blunt dissection. Both le ads were unscrewed from the myocardium and carefully withdrawn from the heart. We witnessed no resi stance. The patient remained hemodynamically stable following explantation of the leads. Afterwards, the pocket was irrigated with antibiotic-containing solution. All bleeders were cauteri zed and manual pressure was held. The pocket was then closed in 3 layers, initially with 2 layers o f interrupted suture using 2-0 and 3-0 Vicryl and finally, 3-0 StrataFix for the skin. DEVICE INFORMATION: The pacemaker is a [employer] DR [place], serial #[id number] implanted May 04, 2016. Atrial lead [employer] Tendril SDX 2088TC 52 cm lead, serial #[id number]. Ventricular lead [employer] Tendril SDX model #2088TC 58 cm lead, serial #[id number]. COMPLICATIONS: None. DISPOSITION: The patient will be recovered in the CVC and discharged home later today. /[id number]/MODL
== END 2016-08-10 18:34 | disposition home or self-care (01) ==
LOC: FCATH 12:50
PROVIDERS: ATTEND Internal Medicine Cardiovascular Disease
DX: Z45.018 Encounter for adjustment and management of other part of cardiac pacemaker (principal); I33.0 Acute and subacute infective endocarditis; I48.0 Paroxysmal atrial fibrillation; Z95.3 Presence of xenogenic heart valve; Z95.0 Presence of cardiac pacemaker
CPT/HCPCS: J2250; J3010; J3370

== ENCOUNTER → 2016-09-20 | Outpatient (CLI) | payer OTHER, MEDICARE | LOC: BHLMT 09:15 | PROVIDERS: ATTEND Internal Medicine Interventional Cardiology | DX: I48.91 Unspecified atrial fibrillation (principal); I35.9 Nonrheumatic aortic valve disorder, unspecified; I10 Essential (primary) hypertension | CPT/HCPCS: 93306-PO ==

== ENCOUNTER → 2016-09-22 | Outpatient (CLI) | payer OTHER, MEDICARE | LOC: BHLMT 14:00 | PROVIDERS: ATTEND Internal Medicine Cardiovascular Disease | DX: I38 Endocarditis, valve unspecified (principal); I48.0 Paroxysmal atrial fibrillation; I25.10 Atherosclerotic heart disease of native coronary artery without angina pectoris; Z79.899 Other long term (current) drug therapy; Z95.2 Presence of prosthetic heart valve; Z95.0 Presence of cardiac pacemaker | CPT/HCPCS: 93005-PO ==

== ENCOUNTER → 2017-07-20 | Outpatient (CLI) | payer OTHER, MEDICARE | LOC: BHLMT 09:00 | PROVIDERS: ATTEND Thoracic Surgery (Cardiothoracic Vascular Surgery) | DX: I48.91 Unspecified atrial fibrillation (principal) | CPT/HCPCS: 93225-PO; 93226-PO ==